=== PATIENT | male | born 1970 | race Caucasian/White ===

== ENCOUNTER 2023-01-16 17:55 | Inpatient (IN) | payer OTHER, SELFPAY ==
--- NOTE | ~2023-01-16 | MR_ITS ---
MRI of the brain Clinical History: Left homonymous hemianopia Technique: Axial and sagittal T1-weighted images were acquired. These were followed by axial T2-weigh jose francisco, diffusion weighted, gradient, and FLAIR images. Following intravenous administration of 20 cc Mu ltiHance gadolinium, T1-weighted fat-sat imaging was performed in the axial and coronal planes. Findings: There is extensive restricted diffusion involving the right occipital lobe, compatible with acute infarct. There are much smaller scattered focal areas of restricted diffusion in the posterior left temporal/occipital lobe and left cerebellum, as well as in the cerebellar vermis. No intracrani al hemorrhage evident. Areas of acute infarct and straight corresponding hyperintense FLAIR signal. T here are background mild chronic microvascular ischemic changes in the periventricular white matter b ilaterally. Ventricles and subarachnoid spaces are unremarkable. Orbits are unremarkable. There is bilateral maxi llary and ethmoid sinus disease. Possible small arachnoid cyst anterior to the pontomedullary junction with apparent mild mass effect (sagittal image 14). Sagittal midline structures otherwise are unremarkable. IMPRESSION: Extensive acute right occipital lobe infarct. Scattered, much smaller, focal areas of acute infarct in the posterior left temporal/left occipital l obe, left cerebellum, and cerebellar vermis. Possible arachnoid cyst anterior to the pontomedullary junction with apparent mild mass effect, as de tailed above. Mild background chronic microvascular ischemic change. Reviewed, dictated and finalized at location M. THROWER IMPRESSION: Extensive acute right occipital lobe infarct. Scattered, much smaller, focal areas of acute infarct in the posterior left tem poral/left occipital lobe, left cerebellum, and cerebellar vermis. Possible arachnoid cyst anterior to the pontomedullary junction with apparent m ild mass effect, as detailed above. Mild background chronic microvascular ischemic change.
--- NOTE | ~2023-01-16 | CT_ITS ---
EXAMINATION: CTA brain carotid DATE: 01/16/2023 20:18 INDICATION: Left-sided homonymous hemianopsia. TECHNIQUE: Computed tomographic angiography (CTA) of the head was performed without and with 100 mL O mnipaque-350 intravenous contrast. CTA of the neck was performed with intravenous contrast. Automated exposure control and iterative reconstruction technique were employed. The dose-length product was 1 887.65 mGy-cm. Maximum intensity projection and volume rendered 3D-reconstructions were created by josh ayala technologist on a separate workstation. COMPARISON: None. FINDINGS: HEAD CTA: There is no intracranial hemorrhage, acute infarction, or abnormal intracranial mass lesion . The ventricles are normal in size. There is mucosal thickening in the paranasal sinuses. The orbits are normal. The mastoid air cells are normal. Left vertebral artery is dominant. There is no signifi cant stenosis of basilar artery or the posterior cerebral arteries. There is no significant stenosis of the intracranial internal carotid arteries or anterior or middle cerebral arteries. Anterior commu nicating artery is normal. The posterior communicating arteries are normal. There is no aneurysm. NECK CTA: There are no pathologically enlarged lymph nodes. There is no significant stenosis of the v ertebral arteries. There is plaque in proximal left internal carotid artery. There is 0% stenosis of the proximal right internal carotid artery relative to normal distal artery lumen diameter (NASCET cr iteria). There is 0% stenosis of the proximal left internal carotid artery relative to normal distal artery lumen diameter. There is mild cervical spondylosis. IMPRESSION: 1. Normal brain. No aneurysm or significant intracranial arterial stenosis. 2. 0% stenosis of the proximal internal carotid arteries relative to normal distal artery lumen diame ters (NASCET criteria). Reviewed, dictated and finalized at location E. ISH REMOVER IMPRESSION: 1. Normal brain. No aneurysm or significant intracranial arterial stenosis. 2. 0% stenosis of the proximal internal carotid arteries relative to normal dis adwoa artery lumen diameters (NASCET criteria).
--- NOTE | ~2023-01-16 | XR_ITS ---
EXAMINATION: XR chest 2V DATE: 01/16/2023 20:07 INDICATION: Cerebrovascular accident. TECHNIQUE: Frontal and lateral views of the chest were obtained. COMPARISON: None. FINDINGS: There is marked elevation of right hemidiaphragm. There is mild atelectasis at right lung b ase. No pleural effusion or pneumothorax. The heart size is normal. IMPRESSION: 1. Marked elevation of right hemidiaphragm with mild atelectasis at right lung base. Reviewed, dictated and finalized at location E. E AID
[2023-01-16 18:00] VITALS: BP 119/118; PULSE 80; RESP 18; TEMP 36.8; O2SAT 96
--- NOTE | 2023-01-16 19:22 | ECG_ITS ---
Measurements Intervals [place] Rate: 80 P: 17 CO: 143 QRS: 6 QRSD: 95 T: 30 QT: 353 QTc: 408 Interpretive Statements SINUS RHYTHM NORMAL ELECTROCARDIOGRAM NO PREVIOUS ECG AVAILABLE FOR COMPARISON Electronically Signed On 01-17-2023 7:23:43 [employer] REPAIRER by Greyson Rachel M.D.
[2023-01-16 19:40] LABS: Basophils Percent Auto 0.6 % (0.2-1.2); Eosinophils Absolute Auto 0.1 K/mm3 (0-0.3); Eosinophils Percent Auto 2.2 % (0-4.4); Hematocrit 43.5 % (42.0-52.0); Immature Granulocyte Absolute 0.01 K/mm3 (0.00-0.031); Immature Granulocyte Percent A 0.2 % (0-0.5); Lymphocytes Absolute Auto 1.43 K/mm3 (0.9-3.2); Lymphocytes Percent Auto 28.8 % (18.3-44.2); Mean Corpuscular HGB Conc 34.5 g/dl (32-36); Mean Corpuscular Hemoglobin 31.8 pg (26-34); Mean Corpuscular Volume 92.2 fl (80-100); Mean Platelet Volume 8.8 fl (7.4-10.4); Monocytes Absolute Auto 0.3 K/mm3 (0.1-0.6); Monocytes Percent Auto 6.2 % (2.6-8.5); Neutrophils Absolute Auto 3.1 K/mm3 (1.3-6.7); Platelet Count Result 218 k/mm3 (150-375); Red Blood Count 4.72 M/mm3 (4.6-6.20)
--- NOTE | 2023-01-16 19:41 | ED.NEUROSD ---
HPI - Neuro Symptoms/Deficit General Chief Complaint: Neuro Symptoms/Deficit Stated Complaint: vision problems Time Seen by Provider: 01/16/23 18:59 History of Present Illness HPI Narrative: Patient is a 53-year-old male who presents the ER with concern for CVA. Around 2:00 p.m. patient got out of the shower and noticed he was having difficulty with vision. The visual disruption is the left side of his vision. He went to an eye doctor who performed a evaluation it appears patient has left homonymous hemianopsia. Patient has had some mild posterior headache that is not severe. No aggravating or alleviating factors. Reports family history of aneurysm in his father. No previous history of CVA. Denies any numbness or weakness the arms or legs. No slurred speech. Related Data Home Medications Medication Instructions Recorded Confirmed No Home Medications 01/16/23 01/16/23 Allergies Allergy/AdvReac Type Severity Reaction Status Date / Time No Known Allergies Allergy Unverified 01/16/23 17:56 NKDA Allergy Mild Unknown Uncoded 01/16/23 17:56 Review of Systems Review of Systems: All systems reviewed & are unremarkable except as noted in HPI and below Constitutional: Constitutional: Reports no additional constitutional complaints Eyes: Eyes: Reports change in vision and Denies photophobia ENT: Reports system reviewed and no additional complaints, except as documented Cardiovascular: Cardiovascular: Reports no additional cardiovascular complaints Respiratory: Respiratory: Reports no additional respiratory complaints Gastrointestinal: Gastrointestinal: Reports no additional gastrointestinal complaints Musculoskeletal: Musculoskeletal: Reports no additional musculoskeletal complaints Integumentary/Breasts: Skin/Breast: Reports system reviewed and no additional complaints, except as docu Neurologic: Denies syncope, Reports headache(s), Denies focal weakness and Denies numbness Comments: Positive vision loss [facility] Past Medical History Medical History (Updated 01/17/23 @ 05:35 by Karlo Llamas MD) Healthy adult male Surgical History Surgical History (Updated 01/16/23 @ 19:43 by Karlo Llamas MD) History of hernia surgery Family History Family History Mother Carcinoma of colon Father Carcinoma of colon Social History Social History Smoking status: Never smoker Alcohol intake: current Substance use: never Substance use type: does not use Lack of Transportation: No Lack of Food: Never True Current Housing: I Have Housing Concerned About Future Housing: No Difficulty Paying Gas/Electric Bills: No Difficulty Paying for Meds: No Currently Unemployed: No Education: Bachelor's Degree Difficulty w/ Childcare or Family Care: No Spiritual care concerns: No Exam Narrative: GENERAL: Well-appearing, well-nourished, and in no acute distress. HEAD: Normocephalic, atraumatic. EYES: PERRL and EOMI. patient with left-sided vision loss with peripheral vision testing in both eyes. ENT: Mucous membranes moist. CHEST: Clear to auscultation. No respiratory distress. HEART: Regular rate and rhythm. Normal peripheral pulses. ABDOMEN: Soft, nontender, nondistended. EXTREMITIES: Normal range of motion. No edema. SKIN: Warm, dry, no rash. NEURO: Alert and oriented x3. Vision loss is noted above. No upper lower extremity drift. Normal oufp-vw-wbxy and snraih-cq-uljg testing. No facial droop her dysarthria. Sensation intact bilaterally. See NIH stroke scale. PSYCH: Normal mood and affect. Course Course Emergency Course: Patient educated on lab and imaging results. Discuss need for admission for stroke workup. Accepted by hospitalist. Patient can not for tPA as he presented outside the window. Vital Signs Vital signs: Vital Signs Temperature 98.2 F 01/16/23 18:00 Pulse Rate 80
[2023-01-16 19:51] LABS: Alanine Aminotransferase 34 U/L (6-50); Albumin Level 4.4 g/dL (3.5-5.1); Alkaline Phosphatase 81 U/L (38-126); Anion Gap 8 mmol/L (8-16); Aspartate Amino Transferase 29 U/L (17-59); Bilirubin,Total 0.6 mg/dL (0.2-1.3); Blood Urea Nitrogen 18 mg/dL (9-20); Calcium 9.3 mg/dL (8.4-10.2); Carbon Dioxide 27 mmol/L (22-30); Chloride 105 mmol/L (98-107); Estimated CRCL calculation 134 ml/min; Estimated Glomerular Filt Rate > 60; Glucose 110 mg/dL (65-110); Potassium 4.5 mmol/L (3.4-5.0); Sodium 140 mmol/L (137-145)
[2023-01-16 19:53] LABS: Prothrombin Time 13.4 Seconds (11.1-14.7)
[2023-01-16 19:54] LABS: Partial Thromboplastin Time 28.1 SECONDS (22.3-36.8)
[2023-01-16 20:03] LABS: Troponin I < 0.012 ng/mL (0.000-0.034)
[2023-01-16 20:53] VITALS: BP 148/97; PULSE 87; RESP 16; O2SAT 99
--- NOTE | 2023-01-16 21:14 | PM.IMHP ---
H&P: HPI History of Present Illness Date/Time: 01/16/23 21:14 Chief Complaint: VISION LOSS Narrative: THIS IS A 53-YEAR-OLD MALE WITH NO SIGNIFICANT PAST MEDICAL HISTORY, HOWEVER PATIENT HAS NOT SEEN A DOCTOR OR FOR A WHILE. PRESENTS TO THE EMERGENCY ROOM AFTER HE HAD SUDDEN ONSET PERIPHERAL VISION LOSS AFTER TAKING COLD SHOWER WENT TO SEE AN FLIGHT INSTRUCTOR WHO CONFIRMED THE PERIPHERAL VISION LOSS IN EMERGENCY ROOM PATIENT HAD A CT ANGIOGRAM WITH SHOWED NO ACUTE OBSTRUCTION. PATIENT HAS BEEN PLACED IN OBSERVATION. HAS BEEN IN HIS USUAL STATE OF HEALTH UP UNTIL THIS MOMENT DENIES ANY HEADACHES, NUMBNESS TINGLING FOCAL SENSORIMOTOR DEFICITS, NO FEVERS, NO RIGORS, NO CHILLS NO NAUSEA NO VOMITING NO DIARRHEA NO ABDOMINAL PAIN NO COUGH NO SPUTUM PRODUCTION. HAS SOME HEADACHE IN THE OCCIPITAL AREA. XAMINATION: XR chest 2V DATE: 01/16/2023 20:07 INDICATION: Cerebrovascular accident. TECHNIQUE: Frontal and lateral views of the chest were obtained. COMPARISON: None. FINDINGS: There is marked elevation of right hemidiaphragm. There is mild atelectasis at right lung base. No pleural effusion or pneumothorax. The heart size is normal. IMPRESSION: 1. Marked elevation of right hemidiaphragm with mild atelectasis at right lung base. EXAMINATION: CTA brain carotid DATE: 01/16/2023 20:18 INDICATION: Left-sided homonymous hemianopsia. TECHNIQUE: Computed tomographic angiography (CTA) of the head was performed without and with 100 mL Omnipaque-350 intravenous contrast. CTA of the neck was performed with intravenous contrast. Automated exposure control and iterative reconstruction technique were employed. The dose-length product was 1887.65 mGy-cm. Maximum intensity projection and volume rendered 3D-reconstructions were created by the technologist on a separate workstation. COMPARISON: None. FINDINGS: HEAD CTA: There is no intracranial hemorrhage, acute infarction, or abnormal intracranial mass lesion. The ventricles are normal in size. There is mucosal thickening in the paranasal sinuses. The orbits are normal. The mastoid air cells are normal. Left vertebral artery is dominant. There is no significant stenosis of basilar artery or the posterior cerebral arteries. There is no significant stenosis of the intracranial internal carotid arteries or anterior or middle cerebral arteries. Anterior communicating artery is normal. The posterior communicating arteries are normal. There is no aneurysm. NECK CTA: There are no pathologically enlarged lymph nodes. There is no significant stenosis of the vertebral arteries. There is plaque in proximal left internal carotid artery. There is 0% stenosis of the proximal right internal carotid artery relative to normal distal artery lumen diameter (NASCET criteria). There is 0% stenosis of the proximal left internal carotid artery relative to normal distal artery lumen diameter. There is mild cervical spondylosis. IMPRESSION: 1. Normal brain. No aneurysm or significant intracranial arterial stenosis. 2. 0% stenosis of the proximal internal carotid arteries relative to normal distal artery lumen diameters (NASCET criteria). Review of Systems Review of Systems: PERIPHERAL VISION BILATERALLY Constitutional: Constitutional: Denies chills, Denies fatigue, Denies fever(s), Denies frequent falls, Denies malaise, Denies night sweats, Denies poor appetite and Denies weakness Eyes: Eyes: Reports change in vision and Reports loss of vision (BILATERALLY PERIPHERAL VISION LOSS) ENT: Denies dysphagia, Denies vertigo, Denies dizziness, Denies facial pain, Reports headache(s) (OCCIPITAL), Denies nasal congestion, Denies nasal discharge and Denies odynophagia Cardiovascular: Cardiovascular: Denies chest pain, Denies radiating jaw, neck or arm pain and Denies palpitations Respiratory: Respiratory: Denies cough, Denies excessive phlegm production and Denies dyspnea Gastrointestinal: Gastrointestinal: Denies abdomina
--- NOTE | 2023-01-16 23:10 | ADMGEN ---
This patient, Kory Cueva, was admitted to Medical Room 248-01. Patient/family oriented to hospital policies and general routines including ID bracelet, bed and alarms, visiting hours, pain management, procedures, bathroom and other care routines, personal items, smoking policy, room service/diet, and visiting hours. Information on how to activate the Rapid Response Team has been discussed. Patient/Family are encouraged to report perceived risks to care and to ask questions if they do not understand what they are told or what they should do.
[2023-01-16 23:15] VITALS: BP 147/108; PULSE 94; RESP 16; TEMP 36.1; O2SAT 95
[2023-01-16 23:30] VITALS: BP 173/100
[2023-01-17] VITALS (11 sets, daily range): BP systolic 122–190; BP diastolic 68–98; PULSE 70–99; RESP 16–18; TEMP 36.4–36.6; O2SAT 95–96
[2023-01-17] MEDS: ACETAMINOPHEN 500 MG TABLET 1000 MG PO ×2 (01:17→20:22)
[2023-01-17] MEDS: hydrALAZINE HCL 20 MG/ML VIAL 10 MG IV PUSH (01:17)
--- NOTE | 2023-01-17 06:00 | ECHO_ITS ---
Patient Info Name: Kory Cueva Age: 53 years : 1970 Gender: Male Ht: 70 in Wt: 260 lbs BSA: 2.46 m2 HR: 78 bpm BP: 145 / 71 mmHg Technical Quality: Fair Exam Date: 01/17/2023 12:04 PM Exam Location: Echo Lab Exam Room: [facility] Patient Status: Inpatient Admit Date: 01/17/2023 Staff Ordering Physician: Karlo Llamas MD Bridge Expert: Samantha Vivas RDCS Attending Provider: Katy Cortez MD Referring Physician: Farhad TOURE; Exam Type: CA echo doppler w bubble study Study Info Indications - cva r/o cse Complete two-dimensional, color flow and Doppler transthoracic echocardiogram is performed with agitated saline. Contrast/Agitated Saline Contrast/Ag. Saline: Agitated Saline Amount: 20.00 ml Existing IV Access: Yes IV Access Condition: patent with no signs of infiltration Summary 1. Left ventricular chamber dimension is normal. 2. Left ventricular systolic function is normal, estimated at 65-70%. 3. There is mild concentric increased left ventricular wall thickness. 4. The left ventricular diastolic function is grade I diastolic dysfunction. 5. E/e' 8 is minimally elevated. 6. There is trace tricuspid valve regurgitation. 7. No pulmonary hypertension, estimated pulmonary arterial systolic pressure is 35 mmHg. Left Ventricle E/e' 8 is minimally elevated. Left ventricular chamber dimension is normal. Left ventricular systolic function is normal, estimated at 65-70%. There is mild concentric increased left ventricular wall thickness. The left ventricular diastolic function is grade I diastolic dysfunction. Right Ventricle Right ventricular chamber dimension is normal. Right ventricular systolic function is normal. Left Atria Left atrial chamber dimension is normal. Right Atria Right atrial chamber dimension is normal. Atrial Septum Agitated saline injection with and without valsalva maneuver opacified right side cardiac chambers without shunt to left side cardiac chambers. Intact interatrial septum visualized by 2D and agitated saline imaging. Aortic Valve The aortic valve is trileaflet. There is no aortic valve stenosis. There is no aortic valve regurgitation. Pulmonic Valve There is no pulmonic regurgitation. Mitral Valve There is no mitral valve stenosis. There is no mitral valve regurgitation. Tricuspid Valve There is trace tricuspid valve regurgitation. No pulmonary hypertension, estimated pulmonary arterial systolic pressure is 35 mmHg. Pericardium/Pleural There is no pericardial effusion. Inferior Vena Cava Normal inferior vena cava with >50% collapse upon inspiration consistent with normal right atrial pressure, 5 mmHg. Aorta The aortic root size at the sinus of Valsalva is normal. Left Ventricular Outflow Tract Name Value Normal LVOT 2D LVOT Diameter 2.1 cm LVOT Doppler LVOT Peak Gradient 5 mmHg LVOT Mean Gradient 3 mmHg LVOT VTI 19 cm LVOT VTI/AV VTI Ratio 0.8 LVOT Stroke Volume 63 ml LVOT CO 15.7 l/min
[2023-01-17 10:40] LABS: Cholesterol 190 mg/dL (0-200); HDL Direct 35 mg/dL; Triglycerides 88 mg/dL (<150)
[2023-01-17 10:50] LABS: LDL Cholesterol Direct 128 mg/dL
--- NOTE | 2023-01-17 11:33 | WPDNEURCNPN ---
Assessment and Plan Assessment and plan (1) Cerebrovascular accident: Code(s): I63.9 - Cerebral infarction, unspecified Status: Acute (2) Left homonymous hemianopsia: Code(s): H53.462 - Homonymous bilateral field defects, left side Status: Acute (3) Obesity (BMI 30-39.9): Code(s): E66.9 - Obesity, unspecified Status: Acute (4) Hypertension: Code(s): I10 - Essential (primary) hypertension Status: Acute (5) Hyperlipidemia: Code(s): E78.5 - Hyperlipidemia, unspecified Status: Acute Plan Mr. Cueva is a 53 year old male with no significant prior medical history presenting with L homonymous hemianopia. He was found to have R occpital infarct, but also areas of infarcts in the L occipital/temporal/cerebellar region. CTA brain/carotid was negative for intracranial/extracranial stenosis. Etiology of stroke is likely embolic stroke of undetermined stroke. - Continue daily aspirin 81mg daily - Start statin, goal LDL is <70 - Surface echocardiogram with bubble study; if negative will need to consult Cardiology for possible KUNAL/loop to evaluate for cardioembolic etiology - If cardiac work-up is unrevealing, recommend Aspirin 81mg and Plavix 75mg for 3 weeks and then Aspiring 81mg monotherapy thereafter Consult date: 01/17/23 Reason for consult: Stroke HPI: Kory Cueva is a 53 year old male with no significant past medical history presenting for evaluation of visual deficit. Patient was showering yesterday afternoon, when he noted loss of peripheral vision in his left eye around 2PM. He initially when to his eye doctor who noted that he had loss of L sided vision in both eyes. He was then instructed to go to ED. On presentation he was noted to have L homonymous hemianopia but no other focal deficits (NIHSS 3). Blood pressure ranged from 140-150s with highest reaching 170s systolic. EKG showed normal sinus rhythm. CT head and CTA brain/carotid were unrevealing. MRI brain done this morning showed acute infarct in the R occpital lob as well as scatter smaller infarcts in the left temporal lobe, left occipital lobe, and left cerebellum. LDL is 128. Patient was not on any home medications and had not seen a provider in several years. Patient continues to have visual deficit. There is no family history of early stroke or early heart disease. No family history of abnormal clotting as far as he knows. He does not smoke. He works for [employer]. Review of Systems Review of Systems: All systems reviewed & are unremarkable except as noted in HPI and below PMFSH Past Medical History Medical History Healthy adult male Surgical History Surgical History History of hernia surgery Family History Family History Mother Carcinoma of colon Father Carcinoma of colon Social History Social History Smoking status: Never smoker Alcohol intake: current Substance use: never Substance use type: does not use Lack of Transportation: No Lack of Food: Never True Current Housing: I Have Housing Concerned About Future Housing: No Difficulty Paying Gas/Electric Bills: No Difficulty Paying for Meds: No Currently Unemployed: No Education: Bachelor's Degree Difficulty w/ Childcare or Family Care: No Spiritual care concerns: No Meds Home Medications and Allergies Home Medications Medication Instructions Recorded Confirmed Type No Home Medications 01/16/23 01/16/23 History Allergies Allergy/AdvReac Type Severity Reaction Status Date / Time No Known Allergies Allergy Unverified 01/16/23 17:56 NKDA Allergy Mild Unknown Uncoded 01/16/23 17:56 Vital Signs Vital Signs - 24 hr 01/16/23 18:00 01/16/23 20:53 01/16/23 23:15 Temperature 36.8 C 36.
[2023-01-17] MEDS: ASPIRIN 81 MG CHEWABLE TABLET PO (11:53)
[2023-01-17] MEDS: lisinopriL 5 MG TABLET PO (11:53)
--- NOTE | 2023-01-17 11:58 | PC.NURSE ---
First doses of aspirin and lisinopril given at 1153 01/17/23. See Discontinued medications in MAR for administration detail.
--- NOTE | 2023-01-17 12:53 | PM.IMPN ---
Progress Note: A&P Assessment and Plan (1) Vision loss, bilateral: Code(s): H54.3 - Unqualified visual loss, both eyes Status: Acute Assessment and Plan: CT brain/neck showed normal brain. No aneurysm or significant intracranial arterial stenosis.0% stenosis of the proximal internal carotid arteries relative to normal distal artery lumen diameters (NASCET criteria) CXR negative MRI brain showed extensive acute right occipital lobe infarct.Scattered, much smaller, focal areas of acute infarct in the posterior left temporal/left occipital lobe, left cerebellum, and cerebellar vermis. 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 started on aspirin, statin and ACEI, will likely start Plavix for 3 weeks neurology consulted, following recommendations will consult cardiology if ECHO is unrevealing for further evaluation with possible KUNAL/loop for cardiac etiology (2) Obesity (BMI 30-39.9): Code(s): E66.9 - Obesity, unspecified Status: Acute Assessment and Plan: will start on Lipitor 40 mg encourage lifestyle and diet modifications (3) Hypertension: Code(s): I10 - Essential (primary) hypertension Status: Acute Assessment and Plan: ECHO ordered started on lisinopril 5 mg (4) Cerebrovascular accident: Code(s): I63.9 - Cerebral infarction, unspecified Status: Acute Assessment and Plan: Brain MRI showed Extensive acute right occipital lobe infarct.Scattered, much smaller, focal areas of acute infarct in the posterior left temporal/left occipital lobe, left cerebellum, and cerebellar vermis. 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 neurology consulted, will follow recommendations ECHO ordered as CT brain/neck did not show stenosis of the carotid arteries (5) Hyperlipidemia: Code(s): E78.5 - Hyperlipidemia, unspecified Status: Acute Assessment and Plan: lipid panel ordered: triglycerides 88; total chol 190; LDL 128; HDL 35 starting on Lipitor 40 mg daily with goal of LDL < 70 Subjective Date/time seen: 01/17/23 12:53 Interval history: Patient is a 53-year-old male admitted from the ER with concern for CVA. Around 2:00 p.m. yesterday, patient got out of the shower and noticed he was having difficulty with vision. The visual disruption is the left side of his vision. He went to an eye doctor who performed a evaluation and did not think it was vision related. Patient had a mild posterior headache that was not severe. No aggravating or alleviating factors. Reports family history of aneurysm in his father. No previous history of CVA. Denies any numbness or weakness the arms or legs. No slurred speech. He does not follow with a PCP regularly and lives alone. This morning he is reporting a dull headache on the right upper lobe, denies history of migraines. His vision on the right eye was slightly improved this am. His CT brain was negative for acute process, CXR negative but MRI did show acute infarct. Neurology consulted, will follow recommendations. I started him on aspirin 81 mg daily, lisinopril and ordered lipid panel. Will add on Plavix after ECHO results, may need to consult cardiology. Will add statin and await further evaluation. Review of Systems Review of Systems: All systems reviewed & are unremarkable except as noted in HPI and below Exam Narrative: GENERAL: Well nourished, no acute distress, overweight. HEAD: Normocephalic, atraumatic. EYES: PERRLA and EOMI. peripheral vision limited bilaterally. NECK: Supple. LUNGS: Clear to auscultation bilaterally. No respiratory distress. HEART: RRR, no murmurs. ABDOMEN: Soft, nontender, nondistended. Non-tender to palpation. EXTREM
[2023-01-17] MEDS: ATORVASTATIN 40 MG TABLET PO (18:13)
[2023-01-17] MEDS: lisinopriL 10 MG TABLET PO (20:22)
[2023-01-18] VITALS (7 sets, daily range): BP systolic 125–160; BP diastolic 65–90; PULSE 56–112; RESP 18; TEMP 36.7; O2SAT 94
[2023-01-18 07:43] LABS: Hematocrit 43.1 % (42.0-52.0); Hemoglobin 14.3 g/dL (14.0-18.0); Mean Corpuscular HGB Conc 33.2 g/dl (32-36); Mean Corpuscular Hemoglobin 31.8 pg (26-34); Mean Platelet Volume 8.4 fl (7.4-10.4); Platelet Count Result 208 k/mm3 (150-375); Red Blood Count 4.49 M/mm3 (4.6-6.20); Red Cell Distribution Width 12.1 % (11.5-14.5); White Blood Count 7.8 K/mm3 (4.5-10.0)
[2023-01-18 08:13] LABS: Anion Gap 6 mmol/L (8-16); Blood Urea Nitrogen 16 mg/dL (9-20); CRP 0.8 mg/dL (<1.0); Calcium 9.1 mg/dL (8.4-10.2); Carbon Dioxide 29 mmol/L (22-30); Chloride 103 mmol/L (98-107); Estimated CRCL calculation 126 ml/min; Estimated Glomerular Filt Rate > 60; Glucose 108 mg/dL (65-110); Potassium 4.3 mmol/L (3.4-5.0); Sodium 138 mmol/L (137-145)
[2023-01-18] MEDS: ASPIRIN 81 MG CHEWABLE TABLET PO (08:41)
[2023-01-18] MEDS: ACETAMINOPHEN 500 MG TABLET 1000 MG PO (08:41)
[2023-01-18] MEDS: lisinopriL 10 MG TABLET PO (08:41)
[2023-01-18] MEDS: ATORVASTATIN 40 MG TABLET PO (08:41)
--- NOTE | 2023-01-18 09:03 | PM.CNCAR ---
Assessment and Plan Assessment and plan (1) Cerebrovascular accident: Code(s): I63.9 - Cerebral infarction, unspecified Status: Acute Assessment and Plan: 53-year-old male with no known prior cardiovascular history, presented to the hospital with L homonymous hemianopia. Brain MRI showed extensive acute right occipital lobe infarct; scattered, much smaller, focal areas of acute infarct in the posterior left temporal/left occipital lobe, left cerebellum, and cerebellar vermis. EKG normal. On telemetry, patient has predominant sinus rhythm with 1 episode of 6 beat NSVT. Echo showed normal LV function, no interatrial shunt on agitated normal saline. Cardiology consulted for KUNAL plus minus implantable director of cardiac rehabilitation. -after discussing benefits, risks alternatives, patient is willing to proceed with transesophageal echocardiogram to check for cardioembolic source. KUNAL can be done on Friday if patient is still hospitalized at that time. Need for implantable director of cardiac rehabilitation to be determined based on KUNAL findings. -continue aspirin, statin. -neurology evaluation -continue to monitor on telemetry while patient is being hospitalized (2) Hypertension: Code(s): I10 - Essential (primary) hypertension Status: Acute Assessment and Plan: Patient found to have elevated blood pressure during hospitalization. Currently reason for. Monitor blood pressure. History of Present Illness History of Present Illness Consult date/time: 01/18/23 09:03 Requesting physician: Katy Cortez MD Reason For Visit: Left Homonymous Hemianopia Narrative: DATE OF CONSULT: 01/18/2023 REASON FOR CONSULT: CVA, KUNAL, loop REQUESTING PHYSICIAN:MD Dana CHIEF COMPLAINT: Vision impairment HPI: 53-year-old male with no known prior cardiac history. Patient presented to [facility] Emergency Room on 01/16/2023 with vision impairment. Patient states he had difficulty in peripheral vision of both eyes, went to see ? [employer] and was advised to to the hospital. He denied any symptoms of body weakness. No chest pain, shortness of breath, palpitation, dizziness syncope. No known prior cardiac history. Patient states that he usually does not see a physician on a regular basis. EKG on my personal interpretation showed normal sinus rhythm without any significant ST-T abnormality. Troponin x1 negative. Echo showed normal LV systolic function; no interatrial shunt on bubble study. TSH within normal limits. chest x-ray showed Marked elevation of right hemidiaphragm with mild atelectasis at right lung base. CTA head/neck- Normal brain. No aneurysm or significant intracranial arterial stenosis; 0% stenosis of the proximal internal carotid arteries relative to normal distal artery lumen diameters (NASCET criteria). Brain MRI showed extensive acute right occipital lobe infarct; scattered, much smaller, focal areas of acute infarct in the posterior left temporal/left occipital lobe, left cerebellum, and cerebellar vermis. On telemetry, patient has predominantly in sinus rhythm;one 6 beat run of NSVT. Cardiology in the consulted for KUNAL to check for cardioembolic source and possible implantable director of cardiac rehabilitation. Review of Systems Review of Systems: General: Negative for fever, chills, fatigue Psychological: Negative for anxiety, depression Ophthalmic: Visual impairment with loss of peripheral vision as per patient ENT: Negative for epistaxis, headaches Allergy and immunology: Negative for hives, nasal congestion Hematologic and lymphatic: Negative for overt bleeding problems Endocrine: Negative for hot flashes, palpitations Respiratory: Negative for cough, hemoptysis Cardiovascular: Negative for chest pain, shortness of breath, leg swelling, palpitations, dizziness, syncope Gastrointestinal: Negative for abdominal pain, nausea, vomiting, hematochezia Musculoskeletal: Negative for myalgia, joint pains Neurolog
[2023-01-18 09:52] LABS: Free T4 Free Thyroxine Reflex 0.93 ng/dL (0.78-2.19)
[2023-01-18 10:47] LABS: Total Triiodothyronine (T3) 1.01 NG/ML (0.97-1.69)
--- NOTE | 2023-01-18 12:20 | WPDNEUROPN ---
Progress Note: A&P Assessment and Plan (1) Cerebrovascular accident: Code(s): I63.9 - Cerebral infarction, unspecified Status: Acute (2) Left homonymous hemianopsia: Code(s): H53.462 - Homonymous bilateral field defects, left side Status: Acute (3) Hypertension: Code(s): I10 - Essential (primary) hypertension Status: Acute (4) Obesity (BMI 30-39.9): Code(s): E66.9 - Obesity, unspecified Status: Acute (5) Hyperlipidemia: Code(s): E78.5 - Hyperlipidemia, unspecified Status: Acute Plan Mr. Cueva is a 53 year old male with no significant prior medical history presenting with L homonymous hemianopia. He was found to have R occipital infarct, but also areas of infarcts in the L occipital/temporal/cerebellar region. CTA brain/carotid was negative for intracranial/extracranial stenosis. Etiology of stroke is likely embolic stroke of undetermined source. - Continue daily aspirin 81mg daily - He has been started on Lipitor 40mg, goal LDL is <70 - Cardiology has been consulted for further cardiac testing - If patient is discharged today, please dc with Aspirin 81mg and Plavix 75mg for 3 weeks and then Aspirin 81mg monotherapy thereafter - He will need outpatient Neurology follow up in about 2-3 months Subjective Date/time seen: 01/18/23 12:20 Interval history: Kory Cueva is a 53 year old male with no significant past medical history presenting for evaluation of visual deficit. Patient was showering yesterday afternoon, when he noted loss of peripheral vision in his left eye around 2PM. He initially when to his eye doctor who noted that he had loss of L sided vision in both eyes. He was then instructed to go to ED. On presentation he was noted to have L homonymous hemianopia but no other focal deficits (NIHSS 3). Blood pressure ranged from 140-150s with highest reaching 170s systolic. EKG showed normal sinus rhythm. CT head and CTA brain/carotid were unrevealing. MRI brain done this morning showed acute infarct in the R occipital lob as well as scatter smaller infarcts in the left temporal lobe, left occipital lobe, and left cerebellum. LDL is 128. Patient was not on any home medications and had not seen a provider in several years. Patient continues to have visual deficit. There is no family history of early stroke or early heart disease. No family history of abnormal clotting as far as he knows. He does not smoke. He works for [employer]. Surface echo with bubble unrevealing; no shunt with normal EF. Visual symptoms are same per patient. He otherwise has no complaints. Review of Systems Review of Systems: All systems reviewed & are unremarkable except as noted in HPI and below Exam Const: General: comfortable and no acute distress HENMT: Mouth: Yes moist mucous membranes Eyes: Pupils: Equal, round and reactive pupils present EOM: EOMs intact bilaterally Other: L homonymous hemianopia Resp: Effort & Inspection: normal respiratory effort Skin: General skin exam: normal color Neuro: Other: Alert, awake, pupils equal and reactive bilaterally, EOMI, L homonymous hemianopia, face symmetric, facial sensation intact, tongue protrudes midline, palate midline. Shoulder shrug normal. Strength 5/5 throughout. Sensation intact throughout. FNF normal bilaterally. Language comprehension and fluency intact. Gait deferred. Extrem: General: normal to inspection Psych: Mental Status: mental status grossly normal Affect: normal affect Objective Data Vital Signs Vital Signs: Vital Signs - 24 hr 01/17/23 14:00 01/17/23 16:00 01/17/23 18:20 Temperature 36.4 C Pulse Rate 89 80 Respiratory Rate 16 Blood Pressure 174/84 H 190/98 H Pulse Oximetry 95 Oxygen Delivery 01/17/23 20:53 01/17/23 20:00 01/17/23 20:00 Temperature 36.5 C Pulse Rate 91 91 99 Respiratory Rate 17 17 Blood Pressure 122/68 Pulse Oximetry 96 96 Oxygen Delivery Alecia
--- NOTE | 2023-01-18 12:23 | PM.DS ---
DS: Admitting Diagnosis Discharge Date 01/18/23 Admitting Diagnosis peripheral vision loss DS: Discharge Diagnosis Discharge Diagnosis (1) Vision loss, bilateral: Code(s): H54.3 - Unqualified visual loss, both eyes Status: Acute Assessment and Plan: CT brain/neck showed normal brain. No aneurysm or significant intracranial arterial stenosis.0% stenosis of the proximal internal carotid arteries relative to normal distal artery lumen diameters (NASCET criteria) CXR negative MRI brain showed extensive acute right occipital lobe infarct.Scattered, much smaller, focal areas of acute infarct in the posterior left temporal/left occipital lobe, left cerebellum, and cerebellar vermis. 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 started on aspirin, statin and ACEI, will start Plavix for 3 weeks neurology consulted, following recommendations ECHO is unrevealing Cardiology consulted, to perform KUNAL outpatient (2) Obesity (BMI 30-39.9): Code(s): E66.9 - Obesity, unspecified Status: Acute Assessment and Plan: Lipitor 40 mg encourage lifestyle and diet modifications (3) Hypertension: Code(s): I10 - Essential (primary) hypertension Status: Acute Assessment and Plan: ECHO normal lisinopril 10 mg monitor BP at home (4) Cerebrovascular accident: Code(s): I63.9 - Cerebral infarction, unspecified Status: Acute Assessment and Plan: Brain MRI showed Extensive acute right occipital lobe infarct.Scattered, much smaller, focal areas of acute infarct in the posterior left temporal/left occipital lobe, left cerebellum, and cerebellar vermis. 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 neurology consulted, will follow recommendations ECHO normal CT brain/neck did not show stenosis of the carotid arteries cardiology to follow outpatient for further evaluation (5) Hyperlipidemia: Code(s): E78.5 - Hyperlipidemia, unspecified Status: Acute Assessment and Plan: lipid panel ordered: triglycerides 88; total chol 190; LDL 128; HDL 35 Lipitor 40 mg daily with goal of LDL < 70 DS: Summary Hospital Course Hospital Course: Patient is a 53-year-old male admitted from the ER with concern for CVA. Around 2:00 p.m. yesterday, patient got out of the shower and noticed he was having difficulty with vision. The visual disruption is the left side of his vision. He went to an eye doctor who performed a evaluation and did not think it was vision related. Patient had a mild posterior headache that was not severe. No aggravating or alleviating factors. Reports family history of aneurysm in his father. No previous history of CVA. Denies any numbness or weakness the arms or legs. No slurred speech. He does not follow with a PCP regularly and lives alone. This morning he is reporting a minor headache His vision on the right eye was slightly improved this yesterday, unchanged today. His CT brain was negative for acute process, CXR negative but MRI did show acute infarct. Neurology consulted and cleared as there is no ischemic cause for the stroke evident on imaging thus far. Started patient on aspirin 81 mg daily, lisinopril and statin with goal of LDL <70. Will add on Plavix for 3 weeks. Cardiology consult today and he will need a KUNAL, but can be done outpatient since this cannot be done here until Friday. He is stable for d/c today home and will follow up to schedule outpatient KUNAL. Status at Discharge Functional status at discharge: independent ambulation Overall status at discharge: patient is progressing back to baseline Time Spent with Patient Time attestation: Total time spent providing and/or coordinating discharge serv
== END 2023-01-18 14:00 | disposition home or self-care (01) | DRG 66 ==
LOC: ANHED 18:59 → ANH3MEDSUR 22:14 → ANH2MED 22:14
PROVIDERS: Admitting Provider Internal Medicine; Emergency Provider Emergency Medicine; PCP Family Medicine; Visit Provider Nurse Practitioner
DX: I63.40 Cerebral infarction due to embolism of unspecified cerebral artery (principal); H53.462 Homonymous bilateral field defects, left side; R29.703 NIHSS score 3; E78.5 Hyperlipidemia, unspecified; I10 Essential (primary) hypertension; Z28.21 Immunization not carried out because of patient refusal
CPT/HCPCS: 36415; 70496; 70498; 70553; 71046; 80048; 80053; 80061; 84439; 84443; 84480; 84484; 85025; 85027; 85610; 85730; 86140; 93005; 93306; 96374; 96375; 99285; A9270; A9577; G0378; J0360; Q9967

== ENCOUNTER 2023-01-27 01:50 | Day surgery (SDC) | payer OTHER, SELFPAY ==
[2023-01-24 11:39] VITALS: BMI 40.2
[2023-01-27] VITALS (8 sets, daily range): BP systolic 114–180; BP diastolic 58–87; PULSE 70–90; RESP 12–18; TEMP 36.3; O2SAT 94–97
--- NOTE | 2023-01-27 | ECHO_ITS ---
Patient Info Name: Kory Cueva Age: 53 years : 1970 Gender: Male Ht: 70 in Wt: 280 lbs BSA: 2.56 m2 BP: 126 / 87 mmHg Technical Quality: Good Exam Date: 01/27/2023 7:43 AM Exam Location: Echo Lab Patient Status: Outpatient Admit Date: 01/27/2023 Staff Ordering Physician: Reg Zapata DO [place] Guide: Penny Guillermo RDCS Attending Provider: Reg Zapata DO Referring Physician: Benny QUACH; Exam Type: CA echo transesophageal Study Info Indications - CVA Complete two-dimensional, color flow and Doppler transesophageal study is performed. Procedure Details Risks/benefits of KUNAL discuss with patient and he is agreeable for procedure. Patient was monitored electrocardiographically, vitals and pulse ox and they remained stable throughout the procedure. Cetacaine spray to posterior oropharynx given x 1. Patient was given Fentanyl 25 mcg and Versed 2 mg IV for conscious sedation. KUNAL probe advanced to posterior oropharynx and he swallowed probe without incident. Multiple images obtained at various levels of esophagus. Agitated saline injection x 1. KUNAL probe withdrawn and no blood noted on probe tip. Patient tolerated procedure well and no complications noted. Summary 1. Transesophageal echocardiogram. 2. Left ventricular chamber dimension is normal. 3. Left ventricular systolic function is normal with an ejection fraction of 65-70% by visual estimation. 4. There is trace mitral valve regurgitation. 5. There is trace tricuspid valve regurgitation. Left Ventricle Left ventricular systolic function is normal with an ejection fraction of 65-70% by visual estimation. The left ventricular diastolic function is indeterminate as it was not assessed. Left ventricular chamber dimension is normal. Right Ventricle Right ventricular chamber dimension is normal. Right ventricular systolic function is normal. Left Atria Left atrial chamber dimension is normal. Right Atria Right atrial chamber dimension is normal. Atrial Septum Agitated saline injection with and without valsalva maneuver opacified right side cardiac chambers without shunt to left side cardiac chambers. Atrial septal aneurysm noted. Intact interatrial septum visualized by 2D, color flow and agitated saline imaging. Atrial Appendage There is no thrombus visualized in the left atrial appendage. Aortic Valve The aortic valve is trileaflet. There is no aortic valve stenosis. There is no aortic valve regurgitation. Pulmonic Valve There is no pulmonic regurgitation. Mitral Valve There is no mitral valve stenosis. There is trace mitral valve regurgitation. Tricuspid Valve There is trace tricuspid valve regurgitation. Pericardium/Pleural There is no pericardial effusion. Inferior Vena Cava Inferior vena cava is not well visualized. Aorta The aortic root size at the sinus of Valsalva is normal. Report Signatures Amended by Reg Zapata DO on 01/27/2023 17:14
== END 2023-01-27 09:41 | disposition home or self-care (01) ==
PROVIDERS: PCP Family Medicine; Visit Provider Internal Medicine Cardiovascular Disease
PROC: (CPT 93312; principal; 2023-01-27 08:30)
DX: I63.9 Cerebral infarction, unspecified (principal); H53.462 Homonymous bilateral field defects, left side; I10 Essential (primary) hypertension; E78.5 Hyperlipidemia, unspecified; Z79.02 Long term (current) use of antithrombotics/antiplatelets; Z79.82 Long term (current) use of aspirin; Z79.899 Other long term (current) drug therapy
CPT/HCPCS: 93312; 93320; 93325; J2250; J3010; J7040

== ENCOUNTER 2023-04-02 08:45 | Outpatient (CLI) | payer OTHER, SELFPAY ==
--- NOTE | 2023-04-14 06:53 | WPDSLEEPSTUD ---
Sleep Study Date of Study: 04/02/23 Ordering Provider: Reg Zapata DO Interpreting Physician: Lyudmila Granados MD Sleep Study Type: Split Polysomnogram Height: 1.78 m Weight: 132.449 kg Body Mass Index: 41.8 Neck Circumference (inches): 17.5 Winter: 3 Reason for Sleep Study r Sleep History Kory Cueva is a 53-year-old man with a recent stroke. He was worked up for embolic etiology, with negative results on echo with bubble study, KUNAL, CT, and MRI. He is having sleep evaluation as part of stroke investigation. He has a family history of sleep disorders, his mother had apnea and used PAP. He never awakens from sleep feeling short of breath. He rarely wakes at night with heartburn, belching or coughing.??He occasionally snores. He rarely has trouble sleeping when he has a cold. He rarely wakes up gasping for breath during the night. He never has breathing problems at night. He never sweats excessively at night. He never notices his heart pounding or beating irregularly during the night. He occasionally falls asleep during the day, rarely falls asleep while driving. He never experiences loss of muscle tone with strong emotion. He never has daytime difficulty at work due to excessive sleepiness. He never feels paralyzed on waking or falling asleep. He never experiences vivid dreams upon waking or falling asleep. He never feels afraid of going to sleep. He never has nightmares. He rarely recalls his dreams. He rarely has thoughts racing through his mind. He never feels sad or depressed. He rarely feels anxiety. He never notices parts of his body jerk. He never kicks during the night. He rarely feels crawling or aching feelings in his legs. He rarely feels leg pain at night. He never has morning jaw pain, never grinds his teeth at night. He rarely feels bothered by pain during the day, never awakened by pain during the night. He rarely wakes up feeling stiff in the morning, and he never wakes feeling sore or achy. He never awakens with pain in his neck, spine, or joints. Normal bedtime is 2:00 a.m, falling asleep within 15 minutes, waking once on occasion at night to get a drink of water or go to the bathroom. Wake time is between 7:00 am and 8:00 am. He typically gets 6-7 hours of sleep at night. He takes naps sometimes in the day, and may feel refreshed after a 10-15 minute nap. Habits:??Tobacco:never smoker Caffeine:none. Alcohol:none Recreational substances: none PMFSH Past Medical History Medical History Cerebrovascular accident (~01/2023) Colon cancer screening Family history of colon cancer Hyperlipidemia Hypertension Left homonymous hemianopsia (~01/2023) Surgical History Surgical History History of bilateral inguinal hernia repair (~09/2008) Family History Family History Mother Carcinoma of colon Father Carcinoma of colon Social History Social History Smoking status: Never smoker Alcohol intake: never Substance use: never Substance use type: does not use Do You Feel Safe in your Home?: Yes Lack of Transportation: No Lack of Food: Never True Current Housing: I Have Housing Concerned About Future Housing: No Difficulty Paying Gas/Electric Bills: No Difficulty Paying for Meds: No Currently Unemployed: No Education: Bachelor's Degree Difficulty w/ Childcare or Family Care: No Living arrangements: with family Spiritual care concerns: No Medications Home Medications Medication Instructions Recorded Confirmed Type aspirin 81 mg chewable tablet 81 mg PO DAILY@0800 #30 tabs 02/19/23 03/25/23 Rx (Children's Aspirin) amlodipine 10 mg tablet 10 mg PO DAILY #90 tabs 02/26/23 03/25/23 Rx atorvastatin 40 mg tablet 40 mg PO QHS #90 tabs 02/26/23 03/25/23
[2023-04-17 16:24] VITALS: BMI 41.8
== END 2023-04-03 07:13 | disposition home or self-care (01) ==
LOC: ANHCSM 08:46
PROVIDERS: PCP Family Medicine; Visit Provider Internal Medicine Cardiovascular Disease
DX: G47.10 Hypersomnia, unspecified (principal); G47.33 Obstructive sleep apnea (adult) (pediatric)
CPT/HCPCS: 95811

== ENCOUNTER 2023-04-14 01:27 | Day surgery (SDC) | payer OTHER, SELFPAY ==
[2023-03-25 14:25] VITALS: BMI 40.1
--- NOTE | 2023-04-11 12:39 | SUR.PREOP ---
Patient called regarding upcoming procedure. Reviewed preop instructions, appointment times, and procedure prep.
[2023-04-14 06:30] VITALS: BP 136/96; PULSE 75; RESP 18; TEMP 36.3; O2SAT 94
[2023-04-14] MEDS: LACTATED RINGERS 1,000 ML 150 ML IV CONT (06:41)
--- NOTE | 2023-04-14 07:26 | WPDANESEPPF ---
Anes - Initial Pre Proc Eval Procedure: Operation Date: 04/14/23 07:30 Proposed Procedures p Colonoscopy - Arron Renae MD Date/Time: 04/14/23 07:26 Surgeon: Arron Renae MD Pre Op Diagnosis: Family history of malignant neoplasm of digestive Patient Data Age: 53 Gender: M Height: 1.78 m Weight: 128.6 kg Last Vital Signs Temp 97.4 F L 04/14/23 06:30 Pulse 75 04/14/23 06:30 Resp 18 04/14/23 06:30 BP 136/96 H 04/14/23 06:30 Pulse Ox 94 04/14/23 06:30 O2 Del Method Room Air 04/14/23 06:30 Allergies Allergy/AdvReac Type Severity Reaction Status Date / Time No Known Allergies Allergy Verified 04/14/23 06:26 Home Medications Medication Instructions Recorded Confirmed Type aspirin 81 mg chewable tablet 81 mg PO DAILY@0800 #30 tabs 02/19/23 03/25/23 Rx (Children's Aspirin) amlodipine 10 mg tablet 10 mg PO DAILY #90 tabs 02/26/23 03/25/23 Rx atorvastatin 40 mg tablet 40 mg PO QHS #90 tabs 02/26/23 03/25/23 Rx lisinopril 20 mg tablet 20 mg PO DAILY #90 tabs 02/26/23 03/25/23 Rx Patient hx anesthesia problems: none Family hx anesthesia problems: none Results Review: All pre-operative results and documents have been reviewed as part of the pre-operative evaluation. FOR[facility]LY [facility], [facility] Past Medical History Medical History Cerebrovascular accident (~01/2023) Family history of colon cancer Hyperlipidemia Hypertension Left homonymous hemianopsia (~01/2023) Surgical History Surgical History History of bilateral inguinal hernia repair (~09/2008) Family History Family History Mother Carcinoma of colon Father Carcinoma of colon Social History Social History Smoking status: Never smoker Alcohol intake: never Substance use: never Substance use type: does not use Do You Feel Safe in your Home?: Yes Lack of Transportation: No Lack of Food: Never True Current Housing: I Have Housing Concerned About Future Housing: No Difficulty Paying Gas/Electric Bills: No Difficulty Paying for Meds: No Currently Unemployed: No Education: Bachelor's Degree Difficulty w/ Childcare or Family Care: No Living arrangements: with family Spiritual care concerns: No Anes - Eval Final PreProcedure Day of Procedure 04/14/23 07:26 Patient weight: morbidly obese Heart: regular rate and rhythm Lungs: clear to auscultation Airway: Mallampati scale class II Neurological: alert and oriented Last oral intake: >/= 8 hours ASA classification: III Emergent: no Anesthetic plan: proceed Anesthesia type and monitoring: general GIVS and standard monitoring Results Review: All pre-operative results and documents have been reviewed as part of the pre-operative evaluation. Informed Consent: The patient's anesthetic plan and its attendant risks and benefits were discussed with the patient/family/POA. Questions were solicited and answers provided to the satisfaction of the patient/family/POA.
--- NOTE | 2023-04-14 07:29 | PM.HPGS ---
History of Present Illness History of Present Illness Consent: Risks, benefits, and alternatives have been discussed and questions answered. Patient agrees to proceed with procedure. Chief complaint: Family history of malignant neoplasm of digestive Narrative: Kory Cueva is a 53 year old male here for screening colonoscopy, last one about 12 years ago Review of Systems Constitutional: Constitutional: Denies headache(s) and Denies weakness Eyes: Eyes: Denies blurry vision ENT: Reports Normal hearing present, Denies headache(s) and Denies neck pain Cardiovascular: Cardiovascular: Denies chest pain and Denies dyspnea Respiratory: Respiratory: Denies dyspnea Gastrointestinal: Gastrointestinal: Reports no additional gastrointestinal complaints Genitourinary: Genitourinary: Denies dysuria Musculoskeletal: Musculoskeletal: Denies neck pain Integumentary/Breasts: Skin/Breast: Denies dry skin Neurologic: Reports Normal hearing present, Denies headache(s) and Denies weakness Psychiatric: Psychiatric: Denies anxiety Endocrine: Endocrine: Denies change in body appearance Hematologic/Lymphatic: Hematologic/Lymphatic: Denies easy bleeding Allergic/Immunologic: Allergic/Immunologic: Denies urticaria PMFSH Past Medical History Medical History (Updated 04/14/23 @ 07:30 by Arron Renae MD) Cerebrovascular accident (~01/2023) Colon cancer screening Family history of colon cancer Hyperlipidemia Hypertension Left homonymous hemianopsia (~01/2023) Surgical History Surgical History History of bilateral inguinal hernia repair (~09/2008) Family History Family History Mother Carcinoma of colon Father Carcinoma of colon Social History Social History Smoking status: Never smoker Alcohol intake: never Substance use: never Substance use type: does not use Do You Feel Safe in your Home?: Yes Lack of Transportation: No Lack of Food: Never True Current Housing: I Have Housing Concerned About Future Housing: No Difficulty Paying Gas/Electric Bills: No Difficulty Paying for Meds: No Currently Unemployed: No Education: Bachelor's Degree Difficulty w/ Childcare or Family Care: No Living arrangements: with family Spiritual care concerns: No Meds Home Medications and Allergies Home Medications Medication Instructions Recorded Confirmed Type aspirin 81 mg chewable tablet 81 mg PO DAILY@0800 #30 tabs 02/19/23 03/25/23 Rx (Children's Aspirin) amlodipine 10 mg tablet 10 mg PO DAILY #90 tabs 02/26/23 03/25/23 Rx atorvastatin 40 mg tablet 40 mg PO QHS #90 tabs 02/26/23 03/25/23 Rx lisinopril 20 mg tablet 20 mg PO DAILY #90 tabs 02/26/23 03/25/23 Rx Allergies Allergy/AdvReac Type Severity Reaction Status Date / Time No Known Allergies Allergy Verified 04/14/23 06:26 Vital Signs Vital Signs - 24 hr 04/14/23 06:30 Temperature 97.4 F L Pulse Rate 75 Respiratory Rate 18 Blood Pressure 136/96 H Pulse Oximetry 94 Oxygen Delivery Room Air Exam Const: General: comfortable and no acute distress HENMT: Face/Nose/Sinus: Normal nares present Eyes: General: appearance normal, both eyes and all related structures Neck: Neck: no JVD Resp: Auscultation: clear to auscultation bilaterally Cardio: Rate: regular rate Rhythm: regular rhythm GI: Inspection: non-distended GI Palp: Yes Soft to palpation Skin: General skin exam: normal color Neuro: General: gait normal Speech: normal speech Extrem: General: normal to inspection Psych: Mental Status: mental status grossly normal Assessment and Plan Assessment and plan (1) Colon cancer screening: Code(s): Z12.11 - Encounter for screening for malignant neoplasm of colon Status: Acute Assessment and Plan: c
[2023-04-14 07:50] VITALS: BP 114/74; PULSE 67; RESP 19; O2SAT 94
[2023-04-14 08:00] VITALS: BP 122/59; PULSE 62; RESP 19; O2SAT 94
[2023-04-14 08:10] VITALS: BP 125/79; PULSE 64; RESP 23; O2SAT 100
== END 2023-04-14 08:25 | disposition home or self-care (01) ==
PROVIDERS: PCP Family Medicine; Visit Provider Internal Medicine Gastroenterology
PROC: 0DJD8ZZ Inspection of Lower Intestinal Tract, Via Natural or Artificial Opening Endoscopic (ICD-10-PCS; CPT 45378; principal; 2023-04-14 07:30)
DX: Z12.11 Encounter for screening for malignant neoplasm of colon (principal); K57.30 Diverticulosis of large intestine without perforation or abscess without bleeding; I10 Essential (primary) hypertension; E78.5 Hyperlipidemia, unspecified; E66.01 Morbid (severe) obesity due to excess calories; Z68.41 Body mass index [BMI] 40.0-44.9, adult; Z79.82 Long term (current) use of aspirin; Z98.890 Other specified postprocedural states; Z86.79 Personal history of other diseases of the circulatory system; Z80.0 Family history of malignant neoplasm of digestive organs
CPT/HCPCS: G0105; J2704; J7120

== ENCOUNTER 2023-12-06 19:47 | Observation (INO) | payer OTHER, SELFPAY ==
--- NOTE | ~2023-12-06 | XR_ITS ---
EXAMINATION: XR retrograde pyelo w/stent LT DATE: 12/07/2023 11:40 INDICATION: Left ureteral stone. TECHNIQUE: 74 intraoperative fluoroscopic views of the abdomen and pelvis were obtained. I was not pr esent. Fluoroscopy exposure time was 22 seconds. COMPARISON: CT abdomen and pelvis 12/06/2023 FINDINGS: There is an 8 mm stone in proximal left ureter. The left-sided retrograde pyelogram demonst rates mild hydronephrosis. The final images demonstrate a left internal ureteral stent in expected po sition. IMPRESSION: 1. 8 mm stone in proximal left ureter with mild left hydronephrosis. 2. Left internal ureteral stent in expected position. Reviewed, dictated and finalized at location A.
--- NOTE | ~2023-12-06 | CT_ITS ---
EXAMINATION: CT abdomen pelvis wo con DATE: 12/06/2023 21:42 INDICATION: Left lower quadrant pain. History of kidney stones TECHNIQUE: Computed tomography (CT) of the abdomen and pelvis was performed without intravenous contr ast. Automated exposure control and iterative reconstruction technique were employed. Exam dose: 167 1.06 mGy-cm total exam DLP. COMPARISON: 08/15/2008 CT renal scan FINDINGS: Elevated right diaphragm with associated mild atelectasis at the right lung base. The inclu ded lower lung zones are otherwise unremarkable. Normal heart size. Loop recorder device, left anterior chest wall. No pericardial or pleural effusion . There are several probable hepatic cysts, measuring up to approximately a 19 mm maximal dimension. No rmal caliber of the abdominal aorta. No intraperitoneal or retroperitoneal or pelvic mass lesion or a denopathy or ascites. Approximately 6 mm nonobstructing lower pole right renal calculus. There are 3 nonobstructing left renal calculi, the largest approximately 3.9 mm. 4.7 x 8.6 mm left ureteropelvic junction calculus, with associated moderately severe left hydroureter onephrosis, prominent left perinephric stranding, left nephromegaly. Mild prostate enlargement and calcification. The urinary bladder is unremarkable. Diverticulosis of left and right colon; no CT evidence of diverticulitis. Normal appendix. No bowel obstruction or intraperitoneal free air. 5.6 cm AP and 7.7 cm transverse left periumbilical ventral abdominal wall hernia. Bilateral L5 pars interarticularis defects with grade 2 anterolisthesis at L5-S1. Moderately severe degenerative disc disease at L2-3 with mild associated retrolisthesis. Severe degenerative disc disease at L5-S1. IMPRESSION: 0.7 x 8.6 mm left obstructing ureteropelvic duct calculus with prominent nephromegaly an d perinephric stranding and moderately severe left hydronephrosis Bilateral mild nonobstructive nephrolithiasis Several hepatic cysts Normal appendix Diverticulosis of left and right colon; no evidence of diverticulitis Bilateral L5 pars interarticularis defects with grade 2 anterolisthesis at L5-S1 Degenerative disc disease particularly at L2-3 and L5-S1 Reviewed, dictated and finalized at Location [facility]. Reviewed, dictated and finalized at location A. IMPRESSION: 0.7 x 8.6 mm left obstructing ureteropelvic duct calculus with pro minent nephromegaly and perinephric stranding and moderately severe left hydron ephrosis Bilateral mild nonobstructive nephrolithiasis Several hepatic cysts Normal appendix Diverticulosis of left and right colon; no evidence of diverticulitis Bilateral L5 pars interarticularis defects with grade 2 anterolisthesis at L5-S 1 Degenerative disc disease particularly at L2-3 and L5-S1
--- NOTE | ~2023-12-06 | XR_ITS ---
EXAMINATION: XR chest 1V portable DATE: 12/07/2023 05:56 INDICATION: Hypoxia. TECHNIQUE: A single frontal view of the chest was obtained. COMPARISON: Chest 2 views 01/16/2023, CT abdomen and pelvis 12/06/2023 FINDINGS: There is chronic marked elevation of right hemidiaphragm. There is mild atelectasis at righ t lung base. No pleural effusion or pneumothorax. The heart size is normal. There is an electronic im plant in left anterior chest wall. IMPRESSION: 1. Chronic marked elevation of right hemidiaphragm with mild atelectasis at right lung base. Reviewed, dictated and finalized at location A. IMPRESSION: 1. Chronic marked elevation of right hemidiaphragm with mild atelectasis at rig ht lung base.
[2023-12-06 19:50] VITALS: BP 187/92; PULSE 97; RESP 17; TEMP 36.2; O2SAT 95
--- NOTE | 2023-12-06 20:22 | PC.NURSE ---
patient presents to ED for abdominal pain. this patient complains of pain on the left lower side. patient states he had a BM on 12/04 that was formed and moderate. this patient is ambulatory as seen by walking to bathroom. patient is alert and oriented x's 4. Patient is well kempt, wearing isaac shorts and garcia jacket. patient placed in gown. placed on school lunch monitor.
[2023-12-06 20:25] LABS: Basophils Percent Auto 0.5 % (0.2-1.2); Eosinophils Absolute Auto 0.1 K/mm3 (0-0.3); Eosinophils Percent Auto 1.3 % (0-4.4); Hematocrit 40.7 % (42.0-52.0); Hemoglobin 14.2 g/dL (14.0-18.0); Immature Granulocyte Absolute 0.02 K/mm3 (0.00-0.031); Immature Granulocyte Percent A 0.2 % (0-0.5); Lymphocytes Absolute Auto 1.59 K/mm3 (0.9-3.2); Mean Corpuscular HGB Conc 34.9 g/dl (32-36); Mean Corpuscular Hemoglobin 32.2 pg (26-34); Mean Corpuscular Volume 92.3 fl (80-100); Mean Platelet Volume 8.6 fl (7.4-10.4); Monocytes Absolute Auto 0.6 K/mm3 (0.1-0.6); Monocytes Percent Auto 7.3 % (2.6-8.5); Neutrophils Percent Auto 71.7 % (45.5-73.1); Platelet Count Result 184 k/mm3 (150-375); Red Blood Count 4.41 M/mm3 (4.6-6.20); White Blood Count 8.4 K/mm3 (4.5-10.0)
[2023-12-06 20:33] LABS: Add Urine Microscopic? YES; Appearance Urine Clear (Clear); Bacteria Urine None Seen /hpf; Bilirubin Urine Negative (Negative); Blood Urine 2+ (Negative); Color Urine Yellow (Yellow); Glucose Urine UA Negative (Negative); Ketones Urine Negative (Negative); Leukocyte Esterase Ur Negative LEU/UL (Negative); Nitrate Urine Negative (Negative); Non Pathogenic Casts 0-2; Protein Urine Negative (Negative); RBC Urine 21-50 /hpf (0-2); Specific Grav Ur 1.017 (1.001-1.035); Squamous Epithelial Cell Urine None Seen /hpf (Few); WBC Urine 0-5 /hpf (0-3)
[2023-12-06 20:35] LABS: Alanine Aminotransferase 30 U/L (6-50); Albumin Level 4.6 g/dL (3.5-5.1); Alkaline Phosphatase 92 U/L (38-126); Anion Gap 12 mmol/L (4-12); Aspartate Amino Transferase 31 U/L (17-59); Bilirubin,Total 0.7 mg/dL (0.2-1.3); Blood Urea Nitrogen 20 mg/dL (9-20); Calcium 9.3 mg/dL (8.4-10.2); Carbon Dioxide 27 mmol/L (22-30); Chloride 102 mmol/L (98-107); Estimated CRCL calculation 125 ml/min; Estimated Glomerular Filt Rate > 60; Glucose 117 mg/dL (65-110); Lipase 98 U/L (23-300); Potassium 3.6 mmol/L (3.4-5.0); Sodium 141 mmol/L (137-145)
--- NOTE | 2023-12-06 21:01 | PC.NURSE ---
this patient has been repositioned and is now moaning and can be heard at nurses station. RN made MD aware.
--- NOTE | 2023-12-06 21:04 | PC.NURSE ---
MD Moeller in with patient at this time.
[2023-12-06] MEDS: ONDANSETRON INJ 4 MG/2 ML VIAL IV PUSH (21:11)
[2023-12-06] MEDS: LACTATED RINGERS 1,000 ML 999 ML IV CONT (21:11)
[2023-12-06] MEDS: HYDROmorphone HCL INJ (*CRX) 1 MG/ML SYR IV PUSH (21:11)
[2023-12-06 21:19] VITALS: O2SAT 84
[2023-12-06 21:20] VITALS: O2SAT 94
--- NOTE | 2023-12-06 21:20 | PC.NURSE ---
RN noticed patient desaturation at nurses station. Patient placed on 2L NC to maintain saturation above 92.
[2023-12-06 21:22] VITALS: O2SAT 95
[2023-12-06 21:27] VITALS: BP 150/79; PULSE 65; RESP 16; O2SAT 94
--- NOTE | 2023-12-06 21:31 | PC.NURSE ---
radiology in to get patient for CT at this time.
--- NOTE | 2023-12-06 21:48 | PC.NURSE ---
patient is back from CT at this time.
--- NOTE | 2023-12-06 22:07 | PC.NURSE ---
This patient is moaning in pain loudly and can be heard at nurses station. Patient is constantly moving around on the ER stretcher. made aware.
--- NOTE | 2023-12-06 22:33 | ED_ITS ---
HPI - Abdominal Pain General Chief Complaint: Abdominal Pain Stated Complaint: left sided abd pain Time Seen by Provider: 12/06/23 20:43 History of Present Illness HPI narrative: 53-year-old male with a past medical history significant for diverticulosis and kidney stones presenting to the emergency department with a chief complaint of left lower quadrant abdominal pain. He states that it feels somewhat similar to his previous kidney stone but more severe. No recent kidney stone. No urinary issues such as hematuria, dysuria. No issues in the restroom with defecation, no tarry stools or melena. Denies any fever, chills. Was otherwise in his normal state of health. Symptoms were going on for last 2 days. Related Data Allergies Allergy/AdvReac Type Severity Reaction Status Date / Time No Known Allergies Allergy Verified 12/06/23 19:53 Review of Systems Review of Systems: As reviewed [facility] Past Medical History Medical History Cerebrovascular accident (~01/2023) Colon cancer screening Family history of colon cancer Hyperlipidemia Hypertension Implantable loop recorder present Left homonymous hemianopsia (~01/2023) Surgical History Surgical History History of bilateral inguinal hernia repair (~09/2008) Family History Family History Mother Carcinoma of colon Father Carcinoma of colon Social History Social History Smoking status: Never smoker Alcohol intake: never Substance use: never Substance use type: does not use Do You Feel Safe in your Home?: Yes Lack of Transportation: No Lack of Food: Never True Current Housing: I Have Housing Concerned About Future Housing: No Difficulty Paying Gas/Electric Bills: No Difficulty Paying for Meds: No Currently Unemployed: No Education: Bachelor's Degree Difficulty w/ Childcare or Family Care: No Living arrangements: with family Spiritual care concerns: No Exam Narrative: GENERAL: Uncomfortable appearing but awake alert answering all my questions. No distress. HEAD: [Normocephalic, atraumatic.] EYES: [PERRLA and EOMI.] ENT: Nares clear, no rhinorrhea or epistaxis. Mucous membranes moist. NECK: Supple. CHEST: [Clear to auscultation. No respiratory distress.] HEART: [Regular rate and rhythm]. No murmur heard. [Normal peripheral pulses.] ABDOMEN: [Soft, nondistended], tenderness to palpation over the left lower quadrant and left flank. No swelling or hernias appreciated, [No rigidity or guarding] EXTREMITIES: Normal range of motion. [No edema.] SKIN: Warm, dry, no rash. NEURO: [No focal deficits]. Alert and oriented [x3.] PSYCH: [Normal mood and affect.] Course Vital Signs Vital signs: Vital Signs Temperature 36.2 C L 12/06/23 19:50 Pulse Rate 97 12/06/23 19:50 Respiratory Rate 17 12/06/23 19:50 Blood Pressure 187/92 H 12/06/23 19:50 Pulse Oximetry 95 12/06/23 19:50 Oxygen Delivery Room Air 12/06/23 19:50 Temperature 36.2 C L 12/06/23 19:50 Pulse Rate 65 12/06/23 21:27 Respiratory Rate 16 12/06/23 21:27 Blood Pressure 150/79 H 12/06/23 21:27 Pulse Oximetry 94 12/06/23 21:27 Oxygen Delivery Nasal Cannula 12/06/23 21:22 Oxygen Flow Rate 2 12/06/23 21:22 MDM - Abdominal Pain MDM Narrative Medical decision making narrative: 53-year-old male presenting with left lower quadrant left flank pain. Symptoms were gone over last 2 days. He is afebrile, vital signs reassuring aside from stable hypertension. No urinary complaints. Symptoms ongoing for last 2 days. History kidney stones and diverticulosis. He does appear uncomfortable and has a tender abdomen but non peritoneal. Differential is broad but does include diverticulosis, diverticulitis, kidney stone, gastroenteritis. Will obtain laboratory studies and proceed with CT scan without contrast. He was treated with Dilaudid and fluids. Workup revealed no leukocytosis or anemia. Urinalysis shows blood but no infection signs. Electrolytes within normal limits, normal renal function panel. Normal hepatic function panel. Patient CT scan was independent reviewed by myself and also interpreted by radiology. I do appreciate a large obstructing calculus in the left UPJ with measurements of 0.7 x 8.6 mm according to radiology. There is associated nephrogram, perinephric fat stranding and severe left hydronephrosis. Bilateral nonobstructing nephrolithiasis also seen. No diverticulitis but evidence of diverticulosis. Chronic bony anomalies also seen. Patient was re-evaluated had worsening pain. He was given Flomax and fentanyl at this time. Consultation was placed to Urology on-call for management. Spoke to the on-call urologist Dr. Faulkner who after realizing the imaging findings and patient's assessment plans to do an operative stent tomorrow morning. Patient will be made NPO. Patient will be admitted to the hospitalist. Spoke to Dr. Patel was accepted the patient to observation admission for operation tomorrow. Patient was made NPO and I discussed the imaging findings with the patient and he was agreeable to the admission at this time. Medical Records Attestation: I reviewed the patient's medical records. Lab Data Attestation: I reviewed the patient's lab results. 12/06/23 20:16 12/06/23 20:16 Labs: Lab Results 12/06/23 Range/Units 20:16 WBC 8.4 (4.5-10.0) K/mm3 RBC 4.41 L (4.6-6.20) M/mm3 Hgb 14.2 (14.0-18.0) g/dL Hct 40.7 L (42.0-52.0) % MCV 92.3 (80-100) fl MCH 32.2 (26-34) pg MCHC 34.9 (32-36) g/dl RDW 12.0 (11.5-14.5) % Plt Count 184 (150-375) k/mm3 MPV 8.6 (7.4-10.4) fl Immature Gran % (Auto) 0.2 (0-0.5) % Neut % (Auto) 71.7 (45.5-73.1) % Lymph % (Auto) 19.0 (18.3-44.2) % [place] % (Auto) 7.3 (2.6-8.5) % Eos % (Auto) 1.3 (0-4.4) % Baso % (Auto) 0.5 (0.2-1.2) % Lymph # (Auto) 1.59 (0.9-3.2) K/mm3 [place] # (Auto) 0.6 (0.1-0.6) K/mm3 Eos # (Auto) 0.1 (0-0.3) K/mm3 Baso # (Auto) 0.0 (0.0-0.1) K/mm3 Abs Immat Gran (auto) 0.02 (0.00-0.031) K/mm3 Absolute Neuts (auto) 6.0 (1.3-6.7) K/mm3 Absolute Nucleated RBC 0.000 (0.0-0.012) K/mm3 Nucleated RBC % 0.0 (0.0-0.2) % Sodium 141 (137-145) mmol/L Potassium 3.6 (3.4-5.0) mmol/L Chloride 102 (98-107) mmol/L Carbon Dioxide 27 (22-30) mmol/L Anion Gap 12 (4-12) mmol/L BUN 20 (9-20) mg/dL Creatinine 0.80 (0.7-1.3) mg/dL Estim Creat Clear Calc 125 ml/min Estimated GFR > 60 (59 - ) Glucose 117 H (65-110) mg/dL Calcium 9.3 (8.4-10.2) mg/dL Total Bilirubin 0.7 (0.2-1.3) mg/dL AST 31 (17-59) U/L ALT 30 (6-50) U/L Alkaline Phosphatase 92 (38-126) U/L Total Protein 8.0 (6.3-8.2) g/dL Albumin 4.6 (3.5-5.1) g/dL Lipase 98 (23-300) U/L Urine Color Yellow (Yellow) Urine Appearance Clear (Clear) Urine pH 7.0 (5.0-9.0) Ur Specific [place] 1.017 (1.001-1.035) Urine Protein Negative (Negative) mg/dL Urine Glucose (UA) Negative (Negative) mg/dL Urine Ketones Negative (Negative) mg/dL Ur Blood (Man) 2+ H (Negative) Urine Nitrate Negative (Negative) Urine Bilirubin Negative (Negative) Urine Urobilinogen 1.0 (<2.0) mg/dL Leukocyte Esterase Rfl Negative (Negative) ROLA/UL Urine RBC 21-50 H (0-2) /hpf Urine WBC 0-5 (0-3) /hpf Ur Squamous Epith Cells None seen (Few) /hpf Urine Bacteria None seen /hpf Urine Casts 0-2 Imaging Data Attestation: I personally reviewed and interpreted this imaging study as follows: My impression: Impressions Abdomen/Pelvis CT 12/06/23 21:49 IMPRESSION: 0.7 x 8.6 mm left obstructing ureteropelvic duct calculus with prominent nephromegaly and perinephric stranding and moderately severe left hydronephrosis Bilateral mild nonobstructive nephrolithiasis Several hepatic cysts Normal appendix Diverticulosis of left and right colon; no evidence of diverticulitis Bilateral L5 pars interarticularis defects with grade 2 anterolisthesis at L5-S1 Degenerative disc disease particularly at L2-3 and L5-S1 Radiologist's impression: ITS Impressions Abdomen/Pelvis CT 12/06/23 21:49 IMPRESSION: 0.7 x 8.6 mm left obstructing ureteropelvic duct calculus with prominent nephromegaly and perinephric stranding and moderately severe left hydronephrosis Bilateral mild nonobstructive nephrolithiasis Several hepatic cysts Normal appendix Diverticulosis of left and right colon; no evidence of diverticulitis Bilateral L5 pars interarticularis defects with grade 2 anterolisthesis at L5-S1 Degenerative disc disease particularly at L2-3 and L5-S1 Discharge Plan Discharge Clinical Impression: Obstruction of left ureteropelvic junction (UPJ) due to stone Patient Disposition: Still a Patient Condition: Stable Instructions: Antibiotic Form Prescriptions: No Action amlodipine 10 mg tablet 10 mg PO DAILY Qty: 90 1RF aspirin [Children's Aspirin] 81 mg tablet,chewable 81 mg PO DAILY@0800 Qty: 90 1RF atorvastatin 40 mg tablet 40 mg PO QHS Qty: 90 1RF lisinopril 20 mg tablet 20 mg PO DAILY Qty: 90 1RF Follow-up/Referrals: Wayne Escobar MD [Primary Care Provider] - Time of Disposition: 22:52
[2023-12-06] MEDS: TAMSULOSIN HCL 0.4 MG CAPSULE PO (22:38)
[2023-12-06] MEDS: fentaNYL CITRATE INJ (*CRX) 100 MCG/2 ML VIAL IV PUSH (22:38)
[2023-12-06] MEDS: LACTATED RINGERS 1,000 ML 125 ML IV CONT (23:08)
--- NOTE | 2023-12-06 23:45 | PC.NURSE ---
RN on floor did not want report. RN taking patient to floor at this time.
[2023-12-06 23:57] VITALS: BMI 43.8
--- NOTE | 2023-12-06 23:58 | ADMGEN ---
This patient, Kory Cueva, was admitted to Medical Room [address] [place] [address] [id number]. Patient/family oriented to hospital policies and general routines including ID bracelet, bed and alarms, visiting hours, pain management, procedures, bathroom and other care routines, personal items, smoking policy, room service/diet, and visiting hours. Information on how to activate the Rapid Response Team has been discussed. Patient/Family are encouraged to report perceived risks to care and to ask questions if they do not understand what they are told or what they should do.
[2023-12-07] VITALS (18 sets, daily range): BP systolic 101–142; BP diastolic 49–84; PULSE 55–80; RESP 12–20; TEMP 36.3–37.1; O2SAT 90–100; BMI 43.7
[2023-12-07] MEDS: HYDROmorphone HCL INJ (*CRX) 1 MG/ML SYR 0.5 MG IV PUSH (00:13)
--- NOTE | 2023-12-07 01:50 | P.HP_ITS ---
H&P: HPI History of Present Illness Date/Time: 12/07/23 01:50 Chief Complaint: Flank pain Narrative: 53-year-old male with a history of CVA with residual left homonymous hemianopia. Patient reports the left upper quadrants have improved somewhat over time. History of obesity, ISHA on NIPPV at home, hypertension, hyperlipidemia. The patient presents with left lower quadrant abdominal pain for 2 days. He reports a remote kidney stone but never had any intervention. He denies any other associated symptoms. Denies nausea vomiting abdominal pain diarrhea. [facility] ER evaluation on 12/06/[address] abdomen pelvis without contrast which demonstrated a 4.7 x 8.6 mm left ureteropelvic junction calculus with associated moderately severe left hydro ureter nephrosis, prominent left perinephric stranding, left nephromegaly. There is mild prostate enlargement and calcification. He was given Dilaudid 1 mg IV x1, Zofran, 1 L lactated Ringer's, 100 mcg fentanyl IV push x1, tamsulosin 0.4 mg p.o. x1. Urology Dr. Faulkner was contacted from the ER. Requested patient may be NPO and plan for operative stent on 12/07/2023. Admitted under the hospitalist service. Review of Systems Review of Systems: All systems reviewed & are unremarkable except as noted in HPI and below (Subjective) PMFSH Past Medical History Medical History Cerebrovascular accident (~01/2023) Colon cancer screening Family history of colon cancer Hyperlipidemia Hypertension Implantable loop recorder present Left homonymous hemianopsia (~01/2023) Surgical History Surgical History History of bilateral inguinal hernia repair (~09/2008) Family History Family History Mother Carcinoma of colon Father Carcinoma of colon Social History Social History Smoking status: Never smoker Alcohol intake: never Substance use: current Substance use type: does not use Do You Feel Safe in your Home?: Yes Lack of Transportation: No Lack of Food: Never True Current Housing: I Have Housing Concerned About Future Housing: No Difficulty Paying Gas/Electric Bills: No Difficulty Paying for Meds: No Currently Unemployed: No Education: Bachelor's Degree Difficulty w/ Childcare or Family Care: No Living arrangements: with family Spiritual care concerns: No Meds Home Medications and Allergies Home Medications Medication Instructions Recorded Confirmed Type amlodipine 10 mg tablet 10 mg PO DAILY #90 tabs 02/26/23 12/07/23 Rx aspirin 81 mg chewable tablet 81 mg PO DAILY@0800 #90 tabs 10/09/23 12/07/23 Rx (Children's Aspirin) atorvastatin 40 mg tablet 40 mg PO QHS #90 tabs 10/27/23 12/07/23 Rx lisinopril 20 mg tablet 20 mg PO DAILY #90 tabs 11/03/23 12/07/23 Rx Allergies Allergy/AdvReac Type Severity Reaction Status Date / Time No Known Allergies Allergy Verified 12/06/23 19:53 Vital Signs Vital Signs - 24 hr 12/06/23 19:50 12/06/23 21:19 12/06/23 21:20 Temperature 97.1 F L Pulse Rate 97 Respiratory Rate 17 Blood Pressure 187/92 H Pulse Oximetry 95 84 L 94 Oxygen Delivery Room Air Oxygen Flow Rate 12/06/23 21:22 12/06/23 21:27 12/07/23 00:01 Temperature 98.2 F Pulse Rate 65 80 Respiratory Rate 16 18 Blood Pressure 150/79 H 142/80 H Pulse Oximetry 95 94 95 Oxygen Delivery Nasal Cannula Oxygen Flow Rate 2 12/07/23 00:00 12/07/23 00:58 Temperature 98.2 F Pulse Rate 70 Respiratory Rate 20 Blood Pressure 139/84 Pulse Oximetry 97 95 Oxygen Delivery Nasal Cannula Oxygen Flow Rate 2 Exam Const: General: comfortable and no acute distress Other: A&O x3 HENMT: Mouth: Yes moist mucous membranes Eyes: Pupils: Equal, round and reactive pupils present Neck: Neck: supple Resp: Effort & Inspection: normal respiratory effort Auscultation: clear to auscultation bilaterally Cardio: Rate: regular rate Rhythm: regular rhythm GI: Inspection: non-distended GI Palp: Yes Soft to palpation and No Tenderness to palpation present (GI) Other: Protuberant abdomen : General: Yes bladder normal to palpation Neuro: Other: No focal deficits Extrem: General: no edema H&P: Results Labs Labs: Short CBC 12/06/23 Range/Units 20:16 WBC 8.4 (4.5-10.0) K/mm3 Hgb 14.2 (14.0-18.0) g/dL Hct 40.7 L (42.0-52.0) % Plt Count 184 (150-375) k/mm3 BMP 12/06/23 20:16 Sodium 141 Potassium 3.6 Chloride 102 Carbon Dioxide 27 BUN 20 Creatinine 0.80 Glucose 117 H Calcium 9.3 Liver Function 12/06/23 Range/Units 20:16 Total Bilirubin 0.7 (0.2-1.3) mg/dL AST 31 (17-59) U/L ALT 30 (6-50) U/L Alkaline Phosphatase 92 (38-126) U/L Albumin 4.6 (3.5-5.1) g/dL Urine 12/06/23 Range/Units 20:16 Urine Color Yellow (Yellow) Urine Appearance Clear (Clear) Urine pH 7.0 (5.0-9.0) Ur Specific [place] 1.017 (1.001-1.035) Urine Protein Negative (Negative) mg/dL Urine Glucose (UA) Negative (Negative) mg/dL Assessment and Plan Assessment and plan (1) Obstruction of left ureteropelvic junction (UPJ) due to stone: Code(s): N20.1 - Calculus of ureter Status: Acute (2) Obstructive sleep apnea: Code(s): G47.33 - Obstructive sleep apnea (adult) (pediatric) Status: Acute (3) Acute hypoxemic respiratory failure: Code(s): J96.01 - Acute respiratory failure with hypoxia Status: Acute Plan 53-year-old male with a history of CVA with residual left homonymous hemianopia. Patient reports the left upper quadrants have improved somewhat over time. History of obesity, ISHA on NIPPV at home, hypertension, hyperlipidemia. The patient presents with left lower quadrant abdominal pain for 2 days. He reports a remote kidney stone but never had any intervention. He denies any other associated symptoms. Denies nausea vomiting abdominal pain diarrhea. [facility] ER evaluation on 12/06/[address] abdomen pelvis without contrast which demonstrated a 4.7 x 8.6 mm left ureteropelvic junction calculus with associated moderately severe left hydro ureter nephrosis, prominent left perinephric stranding, left nephromegaly. There is mild prostate enlargement and calcification. He was given Dilaudid 1 mg IV x1, Zofran, 1 L lactated Ringer's, 100 mcg fentanyl IV push x1, tamsulosin 0.4 mg p.o. x1. Urology Dr. Faulkner was contacted from the ER. Requested patient may be NPO and plan for operative stent on 12/07/2023. Admitted under the hospitalist service. ----- NPO. Urology consultation. Anticipate stent on 12/07/2023. Lactated Ringer's at 125 cc/hour. He is currently on 2 L nasal cannula. The patient wears NIPPV at home for ISHA. His pain is improved but after some hours it returns. Considering he has acute hypoxic respiratory failure likely as an adverse effect of narcotic use in the setting of ISHA we have discussed the importance of avoiding narcotics if possible. We have discussed the benefits and risk including respiratory depression. The patient has been counseled to only use pain medications as necessary and to understand the risk of respiration depression, deterioration and deateh. He is aware. Tylenol p.r.n., Toradol p.r.n., [place] p.r.n.. Toradol can be used for anti-inflammatory [place] to help keep the baseline pain management. Dilaudid 0.5 mg q.4 hours only as very necessary. CPAP has been ordered. Capnography ordered. Will also check a chest x-ray as well as a quad viral screen. Start incentive spirometer now to help intercostal muscle strength and prevent atelectasis and to get ahead of anticipated procedure requiring anesthesia. Patient otherwise denies upper respiratory symptoms. ----- Restart his [employer] atorvastatin. Hold [employer] amlodipine, aspirin, lisinopril SCDs. NPO. Lactated Ringer's. Pain control as above. Urology consultation. Patient wished to be full code. Hospitalist [facility] Advance Care Plan I have confirmed that the patient's Advanced Care Plan is present, code status is documented, or surrogate decision maker is listed in patient medical record.: Yes Medication Reconciliation I have utilized all available resources to obtain, update and review the patients current medications (includes all prescriptions, OTC, herbals, cannabis, and nutritional supplements).: Yes
[2023-12-07] MEDS: ACETAMINOPHEN 325 MG TABLET 650 MG PO (02:05)
[2023-12-07] MEDS: KETOROLAC 30 MG/ML VIAL (*BKC) IV PUSH (02:55)
[2023-12-07 03:38] LABS: Influenza A QL RT-PCR Negative (Negative); Influenza B QL RT-PCR Negative (Negative); RSV RNA, RT-PCR Negative (Negative); SARS-CoV-2 RNA PCR Negative (Negative)
--- NOTE | 2023-12-07 04:16 | PC.NURSE ---
Hospitalist ordered capnography. Pt uses cpap HS. Respiratory notified that capnography cannot be used in conjunction with cpap. Hospitalist made aware by adjusto writer operator.
[2023-12-07 05:52] LABS: Hematocrit 36.7 % (42.0-52.0); Hemoglobin 12.7 g/dL (14.0-18.0); Mean Corpuscular HGB Conc 34.6 g/dl (32-36); Mean Corpuscular Hemoglobin 32.3 pg (26-34); Mean Corpuscular Volume 93.4 fl (80-100); Mean Platelet Volume 8.5 fl (7.4-10.4); Platelet Count Result 167 k/mm3 (150-375); Red Blood Count 3.93 M/mm3 (4.6-6.20); Red Cell Distribution Width 11.9 % (11.5-14.5); White Blood Count 8.3 K/mm3 (4.5-10.0)
[2023-12-07 06:02] LABS: Anion Gap 6 mmol/L (4-12); Blood Urea Nitrogen 16 mg/dL (9-20); Calcium 8.5 mg/dL (8.4-10.2); Carbon Dioxide 31 mmol/L (22-30); Chloride 101 mmol/L (98-107); Estimated CRCL calculation 112 ml/min; Estimated Glomerular Filt Rate > 60; Glucose 113 mg/dL (65-110); Potassium 3.9 mmol/L (3.4-5.0); Sodium 138 mmol/L (137-145)
[2023-12-07 06:10] LABS: INR 1.1; Prothrombin Time 14.7 Seconds (11.1-14.7)
--- NOTE | 2023-12-07 10:07 | P.PNIM_ITS ---
Progress Note: A&P Assessment and Plan (1) Obstruction of left ureteropelvic junction (UPJ) due to stone: Code(s): N20.1 - Calculus of ureter Status: Acute Assessment and Plan: * Urology consulted with the following procedure today: Procedure Performed 1. Cystoscopy 2. Left retrograde pyelogram with intraoperative interpretation 3. Left ureteral stent placement * Regular diet after procedure. * Pain control: Acetaminophen 650 mg PO q 4 PRN, Hydrocodone/APAP 5-325 mg 1 tab PO q 4 PRN, Toradol 30 mg IVP q 6 PRN, and Hydromorphone 0.5 mg IV q 4 PRN only if high pain. (2) Obstructive sleep apnea: Code(s): G47.33 - Obstructive sleep apnea (adult) (pediatric) Status: Acute Assessment and Plan: * Wears CPAP at home, CPAP ordered. (3) Acute hypoxemic respiratory failure: Code(s): J96.01 - Acute respiratory failure with hypoxia Status: Acute Assessment and Plan: * Sa02 94% RA. * Chest X-ray showed: Chronic marked elevation of right hemidiaphragm with mild atelectasis at right lung base. Subjective Date/time seen: 12/07/23 10:07 Interval history: Patient reports pain in left side is a 1 , constant, and aching. Patient denies chest pain, palpitations, headache, dizziness, nausea, vomiting, or back pain. Review of Systems Review of Systems: All systems reviewed & are unremarkable except as noted in HPI and below Exam Const: General: no acute distress and uncomfortable Eyes: Sclera: sclerae normal Resp: Effort & Inspection: normal respiratory effort Auscultation: clear to auscultation bilaterally Cardio: Rate: regular rate Rhythm: regular rhythm GI: GI Palp: Yes Soft to palpation Auscultation: normal bowel sounds Other: Protuberant abdomen Skin: General skin exam: no rashes or lesions noted Neuro: Speech: normal speech Extrem: General: normal to inspection and no pedal edema Psych: Mental Status: mental status grossly normal Affect: normal affect Objective Data Vital Signs Vital Signs: Vital Signs - 24 hr 12/06/23 19:50 12/06/23 21:19 12/06/23 21:20 Temperature 97.1 F L Pulse Rate 97 Respiratory Rate 17 Blood Pressure 187/92 H Pulse Oximetry 95 84 L 94 Oxygen Delivery Room Air Oxygen Flow Rate 12/06/23 21:22 12/06/23 21:27 12/07/23 00:01 Temperature 98.2 F Pulse Rate 65 80 Respiratory Rate 16 18 Blood Pressure 150/79 H 142/80 H Pulse Oximetry 95 94 95 Oxygen Delivery Nasal Cannula Oxygen Flow Rate 2 12/07/23 00:00 12/07/23 00:58 12/07/23 03:49 Temperature 98.2 F Pulse Rate 70 64 Respiratory Rate 20 19 Blood Pressure 139/84 Pulse Oximetry 97 95 94 Oxygen Delivery Nasal Cannula BiPAP Oxygen Flow Rate 2 12/07/23 06:00 12/07/23 07:40 12/07/23 08:00 Temperature 98.2 F Pulse Rate 66 Respiratory Rate 20 Blood Pressure 113/69 Pulse Oximetry 92 90 Oxygen Delivery Room Air Room Air Oxygen Flow Rate Intake/Output Intake/Output: Intake & Output 12/04/23 12/05/23 12/06/23 12/07/23 23:59 23:59 23:59 23:59 Intake Total 1000 0 Balance 1000 0 Meds/Results Medications: Active Medications Generic Name Dose Route Start Last Admin Trade Name Freq PRN Reason Stop Dose Admin Acetaminophen 650 mg 12/06/23 22:52 12/07/23 02:05 Acetaminophen 325 Mg Tablet PO 650 mg Q4H PRN Administration Mild Pain (1-3) or Fever Hydrocodone Bitart/Acetaminophen 1 tab 12/06/23 22:52 Hydrocodone/Acetaminophen (*Crx) 5-325 Mg Tablet PO Q4H PRN Pain Rated 4-6 Atorvastatin Calcium 40 mg 12/07/23 21:00 Atorvastatin 40 Mg Tablet PO QHS ALVA Hydromorphone HCl 0.5 mg 12/06/23 22:52 12/07/23 00:13 Hydromorphone Hcl Inj (*Crx) 1 Mg/Ml Syr IV PUSH 0.5 mg Q4H PRN Administration Pain Rated 7-10 Lactated Ringer's 1,000 mls @ 125 mls/hr 12/06/23 22:55 12/06/23 23:08 Lr - Lactated Ringers Iv IV CONT 125 mls/hr .Q8H ALVA Administration Ketorolac Tromethamine 30 mg 12/07/23 01:50 12/07/23 02:55 Ketorolac 30 Mg/Ml Vial (*Bkc) IV PUSH 30 mg Q6H PRN Administration Pain Rated 4-6 Ondansetron HCl 4 mg 12/06/23 22:52 Ondansetron Inj 4 Mg/2 Ml Vial IV PUSH Q4H PRN Nausea Radiology Results: ITS Impressions Abdomen/Pelvis CT 12/06/23 21:49 IMPRESSION: 0.7 x 8.6 mm left obstructing ureteropelvic duct calculus with prominent nephromegaly and perinephric stranding and moderately severe left hydronephrosis Bilateral mild nonobstructive nephrolithiasis Several hepatic cysts Normal appendix Diverticulosis of left and right colon; no evidence of diverticulitis Bilateral L5 pars interarticularis defects with grade 2 anterolisthesis at L5-S1 Degenerative disc disease particularly at L2-3 and L5-S1 Chest X-Ray 12/07/23 06:10 IMPRESSION: 1. Chronic marked elevation of right hemidiaphragm with mild atelectasis at right lung base. Labs Labs: Laboratory Results - last 24 hr 12/06/23 12/07/23 12/07/23 20:16 02:42 05:45 WBC 8.4 8.3 RBC 4.41 L 3.93 L Hgb 14.2 12.7 L Hct 40.7 L 36.7 L MCV 92.3 93.4 MCH 32.2 32.3 MCHC 34.9 34.6 RDW 12.0 11.9 Plt Count 184 167 MPV 8.6 8.5 Immature Gran % (Auto) 0.2 Neut % (Auto) 71.7 Lymph % (Auto) 19.0 [place] % (Auto) 7.3 Eos % (Auto) 1.3 Baso % (Auto) 0.5 Lymph # (Auto) 1.59 [place] # (Auto) 0.6 Eos # (Auto) 0.1 Baso # (Auto) 0.0 Abs Immat Gran (auto) 0.02 Absolute Neuts (auto) 6.0 Absolute Nucleated RBC 0.000 Nucleated RBC % 0.0 PT 14.7 INR 1.1 Sodium 141 138 Potassium 3.6 3.9 Chloride 102 101 Carbon Dioxide 27 31 H Anion Gap 12 6 BUN 20 16 Creatinine 0.80 0.90 Estim Creat Clear Calc 125 112 Estimated GFR > 60 > 60 Glucose 117 H 113 H Calcium 9.3 8.5 Total Bilirubin 0.7 AST 31 ALT 30 Alkaline Phosphatase 92 Total Protein 8.0 Albumin 4.6 Lipase 98 Urine Color Yellow Urine Appearance Clear Urine pH 7.0 Ur Specific [place] 1.017 Urine Protein Negative Urine Glucose (UA) Negative Urine Ketones Negative Ur Blood (Man) 2+ H Urine Nitrate Negative Urine Bilirubin Negative Urine Urobilinogen 1.0 Leukocyte Esterase Rfl Negative Urine RBC 21-50 H Urine WBC 0-5 Ur Squamous Epith Cells None seen Urine Bacteria None seen Urine Casts 0-2 Influenza A (RT-PCR) Negative Influenza B (RT-PCR) Negative RSV (RT-PCR) Negative SARS-CoV-2 RNA (RT-PCR) Negative Quality VTE Prophylaxis VTE prophylaxis: mechanical ordered
--- NOTE | 2023-12-07 10:16 | P.CONUR_ITS ---
Assessment and Plan Assessment and plan (1) Obstruction of left ureteropelvic junction (UPJ) due to stone: Code(s): N20.1 - Calculus of ureter Status: Acute Plan 53yM with 8mm left UPJ stone with hydronephrosis - NPO since midnight, IVF - Labs reviewed. No leukocytosis. Serum creatinine WNL. Urinalysis unremarkable for infection. - To OR for cystoscopy, left retrograde pyelogram, left ureteral stent - Risks, benefits, alternatives reviewed with patient. He expressed understanding and agreement to proceed - Patient understands plan for stent placement today with need for secondary procedure in the future after a period of passive ureteral dilation with stent in place. Patient also understands need for follow-up procedure in the office for stent removal. Patient understands the rare possibility that if I am unable to place a ureteral stent in retrograde fashion he will need placement of nephrostomy tube to decompress the left collecting system, which would be performed by interventional radiology. Patient understands common stent symptoms to expect including but not limited to urinary frequency and urgency, hematuria, and bladder spasms/cramping. - Remainder of management per primary - From a urology standpoint patient may be discharged following stent placement as long as his pain is controlled, he is tolerating PO i intake, voiding spontaneously, and ambulating Urology Consult Note HPI Date Seen: 12/07/23 Requesting Physician: Claudette Patel MD Primary Care Provider: Lindsay Escobar MD Consult Narrative Narrative: Kory Cueva is a 53 year old male with PMHx of CVA with left homonymous hemianopsia, HTN, HLD who presented to the ED yesterday for left abdominal/flank pain x2 days. He denies associated fevers, chills, nausea, vomiting, dysuria. He has prior history of kidney stones but has never had surgery for them. Workup including CT showed an 8mm left UPJ stone with associated hydronephrosis in addition to smaller bilateral nonobstructing renal stones. He has been NPO since midnight. Review of Systems Constitutional: Constitutional: Denies chills and Denies fever(s) Eyes: Eyes: Denies blurry vision ENT: Denies dizziness Cardiovascular: Cardiovascular: Denies chest pain Respiratory: Respiratory: Denies dyspnea Gastrointestinal: Gastrointestinal: Denies vomiting Genitourinary: Genitourinary: Denies hematuria and Denies dysuria Neurologic: Denies dizziness Psychiatric: Psychiatric: Denies confusion Endocrine: Endocrine: Denies palpitations [facility] Past Medical History Medical History Cerebrovascular accident (~01/2023) Colon cancer screening Family history of colon cancer Hyperlipidemia Hypertension Implantable loop recorder present Left homonymous hemianopsia (~01/2023) Surgical History Surgical History History of bilateral inguinal hernia repair (~09/2008) Family History Family History Mother Carcinoma of colon Father Carcinoma of colon Social History Social History Smoking status: Never smoker Alcohol intake: never Substance use: current Substance use type: does not use Do You Feel Safe in your Home?: Yes Lack of Transportation: No Lack of Food: Never True Current Housing: I Have Housing Concerned About Future Housing: No Difficulty Paying Gas/Electric Bills: No Difficulty Paying for Meds: No Currently Unemployed: No Education: Bachelor's Degree Difficulty w/ Childcare or Family Care: No Living arrangements: with family Spiritual care concerns: No Meds Home Medications and Allergies Home Medications Medication Instructions Recorded Confirmed Type amlodipine 10 mg tablet 10 mg PO DAILY #90 tabs 02/26/23 12/07/23 Rx aspirin 81 mg chewable tablet 81 mg PO DAILY@0800 #90 tabs 10/09/23 12/07/23 Rx (Children's Aspirin) atorvastatin 40 mg tablet 40 mg PO QHS #90 tabs 10/27/23 12/07/23 Rx lisinopril 20 mg tablet 20 mg PO DAILY #90 tabs 11/03/23 12/07/23 Rx Allergies Allergy/AdvReac Type Severity Reaction Status Date / Time No Known Allergies Allergy Verified 12/06/23 19:53 Vital Signs Vital Signs - 24 hr 12/06/23 19:50 12/06/23 21:19 12/06/23 21:20 Temperature 36.2 C L Pulse Rate 97 Respiratory Rate 17 Blood Pressure 187/92 H Pulse Oximetry 95 84 L 94 Oxygen Delivery Room Air Oxygen Flow Rate 12/06/23 21:22 12/06/23 21:27 12/07/23 00:01 Temperature 36.8 C Pulse Rate 65 80 Respiratory Rate 16 18 Blood Pressure 150/79 H 142/80 H Pulse Oximetry 95 94 95 Oxygen Delivery Nasal Cannula Oxygen Flow Rate 2 12/07/23 00:00 12/07/23 00:58 12/07/23 03:49 Temperature 36.8 C Pulse Rate 70 64 Respiratory Rate 20 19 Blood Pressure 139/84 Pulse Oximetry 97 95 94 Oxygen Delivery Nasal Cannula BiPAP Oxygen Flow Rate 2 12/07/23 06:00 12/07/23 07:40 12/07/23 08:00 Temperature 36.8 C Pulse Rate 66 Respiratory Rate 20 Blood Pressure 113/69 Pulse Oximetry 92 90 Oxygen Delivery Room Air Room Air Oxygen Flow Rate Exam Const: Other: Alert, NAD HENMT: Other: Normocephalic atraumatic Neck: Other: Supple Resp: Other: No signs of respiratory distress Cardio: Other: Regular rate GI: Other: Soft, nontender, nondistended : Other: Left CVAT Skin: Other: No rash Extrem: Other: Moves all 4 Psych: Other: Answers questions appropriately Results Labs 12/07/23 05:45 12/07/23 05:45 Labs: Short CBC 12/06/23 12/07/23 Range/Units 20:16 05:45 WBC 8.4 8.3 (4.5-10.0) K/mm3 Hgb 14.2 12.7 L (14.0-18.0) g/dL Hct 40.7 L 36.7 L (42.0-52.0) % Plt Count 184 167 (150-375) k/mm3 [facility] 12/06/23 12/07/23 20:16 05:45 Sodium 141 138 Potassium 3.6 3.9 Chloride 102 101 Carbon Dioxide 27 31 H BUN 20 16 Creatinine 0.80 0.90 Glucose 117 H 113 H Calcium 9.3 8.5 Liver Function 12/06/23 Range/Units 20:16 Total Bilirubin 0.7 (0.2-1.3) mg/dL AST 31 (17-59) U/L ALT 30 (6-50) U/L Alkaline Phosphatase 92 (38-126) U/L Albumin 4.6 (3.5-5.1) g/dL Urine 12/06/23 Range/Units 20:16 Urine Color Yellow (Yellow) Urine Appearance Clear (Clear) Urine pH 7.0 (5.0-9.0) Ur Specific [place] 1.017 (1.001-1.035) Urine Protein Negative (Negative) mg/dL Urine Glucose (UA) Negative (Negative) mg/dL Imaging My impression: 8 mm left UPJ stone with hydronephrosis and perinephric stranding. Two small left and one small right nonobstructing renal stones
--- NOTE | 2023-12-07 10:54 | PC.NURSE ---
Patient off floor to surgery via bed. Report given to Sunshine RODARTE.
[2023-12-07] MEDS: LIDOCAINE HCL 2% GEL UROJET 10 ML PKG MUCOUS MEM (11:07)
--- NOTE | 2023-12-07 11:08 | WPDANESEPPF ---
Anes - Initial Pre Proc Eval Procedure: Operation Date: 12/07/23 11:00 Proposed Procedures p Cysto, RPG, Stone Ext, Stent Placement Special(Left) - John Faulkner MD Date/Time: 12/07/23 11:08 Surgeon: Claudette Patel MD Pre Op Diagnosis: Obstructing kidney stone Patient Data Age: 53 Gender: M Height: 1.75 m Weight: 134.3 kg Last Vital Signs Temp 98.2 F 12/07/23 06:00 Pulse 66 12/07/23 06:00 Resp 20 12/07/23 06:00 BP 113/69 12/07/23 06:00 Pulse Ox 90 12/07/23 07:40 O2 Del Method Room Air 12/07/23 08:00 O2 Flow Rate 2 12/07/23 00:58 Allergies Allergy/AdvReac Type Severity Reaction Status Date / Time No Known Allergies Allergy Verified 12/06/23 19:53 Home Medications Medication Instructions Recorded Confirmed Type amlodipine 10 mg tablet 10 mg PO DAILY #90 tabs 02/26/23 12/07/23 Rx aspirin 81 mg chewable tablet 81 mg PO DAILY@0800 #90 tabs 10/09/23 12/07/23 Rx (Children's Aspirin) atorvastatin 40 mg tablet 40 mg PO QHS #90 tabs 10/27/23 12/07/23 Rx lisinopril 20 mg tablet 20 mg PO DAILY #90 tabs 11/03/23 12/07/23 Rx Laboratory Tests 12/06/23 12/07/23 12/07/23 20:16 02:42 05:45 WBC 8.4 K/mm3 8.3 K/mm3 (4.5-10.0) (4.5-10.0) RBC 4.41 L M/mm3 3.93 L M/mm3 (4.6-6.20) (4.6-6.20) Hgb 14.2 g/dL 12.7 L g/dL (14.0-18.0) (14.0-18.0) Hct 40.7 L % 36.7 L % (42.0-52.0) (42.0-52.0) MCV 92.3 fl 93.4 fl (80-100) (80-100) MCH 32.2 pg 32.3 pg (26-34) (26-34) MCHC 34.9 g/dl 34.6 g/dl (32-36) (32-36) RDW 12.0 % 11.9 % (11.5-14.5) (11.5-14.5) Plt Count 184 k/mm3 167 k/mm3 (150-375) (150-375) MPV 8.6 fl 8.5 fl (7.4-10.4) (7.4-10.4) Immature Gran % (Auto) 0.2 % (0-0.5) Neut % (Auto) 71.7 % (45.5-73.1) Lymph % (Auto) 19.0 % (18.3-44.2) [place] % (Auto) 7.3 % (2.6-8.5) Eos % (Auto) 1.3 % (0-4.4) Baso % (Auto) 0.5 % (0.2-1.2) Lymph # (Auto) 1.59 K/mm3 (0.9-3.2) [place] # (Auto) 0.6 K/mm3 (0.1-0.6) Eos # (Auto) 0.1 K/mm3 (0-0.3) Baso # (Auto) 0.0 K/mm3 (0.0-0.1) Abs Immat Gran (auto) 0.02 K/mm3 (0.00-0.031) Absolute Neuts (auto) 6.0 K/mm3 (1.3-6.7) Absolute Nucleated RBC 0.000 K/mm3 (0.0-0.012) Nucleated RBC % 0.0 % (0.0-0.2) PT 14.7 Seconds (11.1-14.7) INR 1.1 Sodium 141 mmol/L 138 mmol/L (137-145) (137-145) Potassium 3.6 mmol/L 3.9 mmol/L (3.4-5.0) (3.4-5.0) Chloride 102 mmol/L 101 mmol/L (98-107) (98-107) Carbon Dioxide 27 mmol/L 31 H mmol/L (22-30) (22-30) Anion Gap 12 mmol/L 6 mmol/L (4-12) (4-12) BUN 20 mg/dL 16 mg/dL (9-20) (9-20) Creatinine 0.80 mg/dL 0.90 mg/dL (0.7-1.3) (0.7-1.3) Estim Creat Clear Calc 125 ml/min 112 ml/min Estimated GFR > 60 > 60 (59 - ) (59 - ) Glucose 117 H mg/dL 113 H mg/dL (65-110) (65-110) Calcium 9.3 mg/dL 8.5 mg/dL (8.4-10.2) (8.4-10.2) Total Bilirubin 0.7 mg/dL (0.2-1.3) AST 31 U/L (17-59) ALT 30 U/L (6-50) Alkaline Phosphatase 92 U/L (38-126) Total Protein 8.0 g/dL (6.3-8.2) Albumin 4.6 g/dL (3.5-5.1) Lipase 98 U/L (23-300) Urine Color Yellow (Yellow) Urine Appearance Clear (Clear) Urine pH 7.0 (5.0-9.0) Ur Specific [place] 1.017 (1.001-1.035) Urine Protein Negative mg/dL (Negative) Urine Glucose (UA) Negative mg/dL (Negative) Urine Ketones Negative mg/dL (Negative) Ur Blood (Man) 2+ H (Negative) Urine Nitrate Negative (Negative) Urine Bilirubin Negative (Negative) Urine Urobilinogen 1.0 mg/dL (<2.0) Leukocyte Esterase Rfl Negative ROLA/UL (Negative) Urine RBC 21-50 H /hpf (0-2) Urine WBC 0-5 /hpf (0-3) Ur Squamous Epith Cells None seen /hpf (Few) Urine Bacteria None seen /hpf Urine Casts 0-2 Influenza A (RT-PCR) Negative (Negative) Influenza B (RT-PCR) Negative (Negative) RSV (RT-PCR) Negative (Negative) SARS-CoV-2 RNA (RT-PCR) Negative (Negative) Patient hx anesthesia problems: none Family hx anesthesia problems: none Results Review: All pre-operative results and documents have been reviewed as part of the pre-operative evaluation. [facility] Past Medical History Medical History Cerebrovascular accident (~01/2023) Colon cancer screening Family history of colon cancer Hyperlipidemia Hypertension Implantable loop recorder present Left homonymous hemianopsia (~01/2023) Surgical History Surgical History History of bilateral inguinal hernia repair (~09/2008) Family History Family History Mother Carcinoma of colon Father Carcinoma of colon Social History Social History Smoking status: Never smoker Alcohol intake: never Substance use: current Substance use type: does not use Do You Feel Safe in your Home?: Yes Lack of Transportation: No Lack of Food: Never True Current Housing: I Have Housing Concerned About Future Housing: No Difficulty Paying Gas/Electric Bills: No Difficulty Paying for Meds: No Currently Unemployed: No Education: Bachelor's Degree Difficulty w/ Childcare or Family Care: No Living arrangements: with family Spiritual care concerns: No Anes - Eval Final PreProcedure Day of Procedure 12/07/23 11:08 Patient weight: morbidly obese Heart: regular rate and rhythm Lungs: clear to auscultation Airway: Mallampati scale class II Neurological: alert and oriented Last oral intake: >/= 8 hours ASA classification: III Emergent: no Anesthetic plan: proceed Anesthesia type and monitoring: general LMA and standard monitoring Results Review: All pre-operative results and documents have been reviewed as part of the pre-operative evaluation. HTN, ,hyperlipidemia, ISHA on home bipap. Pt had CVA 01/2023 w residual L sided visual field deficits. KUNAL 01/2023 w nml LVEF, no or shunt. Informed Consent: The patient's anesthetic plan and its attendant risks and benefits were discussed with the patient/family/POA. Questions were solicited and answers provided to the satisfaction of the patient/family/POA.
[2023-12-07] MEDS: LACTATED RINGERS 1,000 ML 30 ML IV CONT (11:10)
--- NOTE | 2023-12-07 11:12 | WPDUROPN2 ---
Subjective Subjective Date/Time Seen: 12/07/23 11:12 Interval history: OR stating I need to write an update note despite seeing the patient a few minutes ago. I saw the patient prior to the procedure. No interval changes since my consult note a few minutes ago. OK to proceed to OR. Objective Data Vital Signs Vital Signs: Vital Signs - 24 hr 12/06/23 19:50 12/06/23 21:19 12/06/23 21:20 Temperature 36.2 C L Pulse Rate 97 Respiratory Rate 17 Blood Pressure 187/92 H Pulse Oximetry 95 84 L 94 Oxygen Delivery Room Air Oxygen Flow Rate 12/06/23 21:22 12/06/23 21:27 12/07/23 00:01 Temperature 36.8 C Pulse Rate 65 80 Respiratory Rate 16 18 Blood Pressure 150/79 H 142/80 H Pulse Oximetry 95 94 95 Oxygen Delivery Nasal Cannula Oxygen Flow Rate 2 12/07/23 00:00 12/07/23 00:58 12/07/23 03:49 Temperature 36.8 C Pulse Rate 70 64 Respiratory Rate 20 19 Blood Pressure 139/84 Pulse Oximetry 97 95 94 Oxygen Delivery Nasal Cannula BiPAP Oxygen Flow Rate 2 12/07/23 06:00 12/07/23 07:40 12/07/23 08:00 Temperature 36.8 C Pulse Rate 66 Respiratory Rate 20 Blood Pressure 113/69 Pulse Oximetry 92 90 Oxygen Delivery Room Air Room Air Oxygen Flow Rate Intake/Output Intake/Output: Intake & Output 12/04/23 12/05/23 12/06/23 12/07/23 23:59 23:59 23:59 23:59 Intake Total 1000 0 Balance 1000 0 Meds/Results Medications: Active Medications Generic Name Dose Route Start Last Admin Trade Name Freq PRN Reason Stop Dose Admin Acetaminophen 650 mg 12/06/23 22:52 12/07/23 02:05 Acetaminophen 325 Mg Tablet PO 650 mg Q4H PRN Administration Mild Pain (1-3) or Fever Hydrocodone Bitart/Acetaminophen 1 tab 12/06/23 22:52 Hydrocodone/Acetaminophen (*Crx) 5-325 Mg Tablet PO Q4H PRN Pain Rated 4-6 Atorvastatin Calcium 40 mg 12/07/23 21:00 Atorvastatin 40 Mg Tablet PO QHS ALVA Hydromorphone HCl 0.5 mg 12/06/23 22:52 12/07/23 00:13 Hydromorphone Hcl Inj (*Crx) 1 Mg/Ml Syr IV PUSH 0.5 mg Q4H PRN Administration Pain Rated 7-10 Lactated Ringer's 1,000 mls @ 125 mls/hr 12/06/23 22:55 12/06/23 23:08 Lr - Lactated Ringers Iv IV CONT 125 mls/hr .Q8H ALVA Administration Ketorolac Tromethamine 30 mg 12/07/23 01:50 12/07/23 02:55 Ketorolac 30 Mg/Ml Vial (*Bkc) IV PUSH 30 mg Q6H PRN Administration Pain Rated 4-6 Lidocaine HCl 10 ml 12/07/23 11:06 12/07/23 11:07 Lidocaine Hcl 2% Gel Urojet 10 Ml Pkg MUCOUS MEM 12/07/23 11:07 10 ml ONCE ONE Administration Ondansetron HCl 4 mg 12/06/23 22:52 Ondansetron Inj 4 Mg/2 Ml Vial IV PUSH Q4H PRN Nausea Radiology Results: ITS Impressions Abdomen/Pelvis CT 12/06/23 21:49 IMPRESSION: 0.7 x 8.6 mm left obstructing ureteropelvic duct calculus with prominent nephromegaly and perinephric stranding and moderately severe left hydronephrosis Bilateral mild nonobstructive nephrolithiasis Several hepatic cysts Normal appendix Diverticulosis of left and right colon; no evidence of diverticulitis Bilateral L5 pars interarticularis defects with grade 2 anterolisthesis at L5-S1 Degenerative disc disease particularly at L2-3 and L5-S1 Chest X-Ray 12/07/23 06:10 IMPRESSION: 1. Chronic marked elevation of right hemidiaphragm with mild atelectasis at right lung base. Labs Labs: Laboratory Results - last 24 hr 12/06/23 12/07/23 12/07/23 20:16 02:42 05:45 WBC 8.4 8.3 RBC 4.41 L 3.93 L Hgb 14.2 12.7 L Hct 40.7 L 36.7 L MCV 92.3 93.4 MCH 32.2 32.3 MCHC 34.9 34.6 RDW 12.0 11.9 Plt Count 184 167 MPV 8.6 8.5 Immature Gran % (Auto) 0.2 Neut % (Auto) 71.7 Lymph % (Auto) 19.0 [place] % (Auto) 7.3 Eos % (Auto) 1.3 Baso % (Auto) 0.5 Lymph # (Auto) 1.59 [place] # (Auto) 0.6 Eos # (Auto) 0.1 Baso # (Auto) 0.0 Abs Immat Gran (auto) 0.02 Absolute Neuts (auto) 6.0 Absolute Nucleated RBC 0.000 Nucleated RBC % 0.0 PT 14.7 INR 1.1 Sodium 141 138 Potassium 3.6 3.9 Chloride 102 101 Carbon Dioxide 27 31 H Anion Gap 12 6 BUN 20 16 Creatinine 0.80 0.90 Estim Creat Clear Calc 125 112 Estimated GFR > 60 > 60 Glucose 117 H 113 H Calcium 9.3 8.5 Total Bilirubin 0.7 AST 31 ALT 30 Alkaline Phosphatase 92 Total Protein 8.0 Albumin 4.6 Lipase 98 Urine Color Yellow Urine Appearance Clear Urine pH 7.0 Ur Specific [place] 1.017 Urine Protein Negative Urine Glucose (UA) Negative Urine Ketones Negative Ur Blood (Man) 2+ H Urine Nitrate Negative Urine Bilirubin Negative Urine Urobilinogen 1.0 Leukocyte Esterase Rfl Negative Urine RBC 21-50 H Urine WBC 0-5 Ur Squamous Epith Cells None seen Urine Bacteria None seen Urine Casts 0-2 Influenza A (RT-PCR) Negative Influenza B (RT-PCR) Negative RSV (RT-PCR) Negative SARS-CoV-2 RNA (RT-PCR) Negative
--- NOTE | 2023-12-07 11:38 | W.PM.PROC2 ---
Procedure Note - Detailed Date of Procedure 12/07/23 Pre-op Diagnosis Left ureteral stone Post-op Diagnosis Same Procedure Performed 1. Cystoscopy 2. Left retrograde pyelogram with intraoperative interpretation 3. Left ureteral stent placement Surgeon oJhn Faulkner MD Anesthesia General Indications Mr. Cueva is a 53-year-old gentleman who was found to have a left sided 8 mm ureteropelvic junction calculus with associated hydronephrosis. For this reason he underwent a discussion of the associated risks, benefits, alternatives to the aforementioned procedures and had expressed understanding and agreement to proceed. Patient specifically a expressed understanding for follow-up surgery for definitive stone treatment. Findings 1. Cystourethroscopy revealed lateral lobe hyperplasia with an elevated bladder neck. Orthotopic ureteral orifices bilaterally. No suspicious lesions, tumors, calculi, or active bleeding in the lower urinary tract. 2. Left retrograde pyelogram using a total of 10 mL of 50 50 mixture of contrast and saline showed mild left hydronephrosis with a filling defect at the left ureteropelvic junction commensurate with the patient's prior CT scan without contrast extravasation 3. Successful left ureteral stent placement without strings attached Description of Procedure after informed consent had been obtained, the patient was brought back to the operating theater and placed in supine position on the operating table or on anesthesia was induced. He was placed in a dorsal lithotomy position prepped and draped in the standard sterile fashion for an endoscopic case. Preoperative antibiotics were confirmed to have been administered. All pressure points were padded. Sequential compression devices were on and noted to be functioning. A formal time-out was performed to confirm the correct patient, site, and procedure and all were in agreement to proceed. To begin with I atraumatically advanced a 22 Taiwanese rigid cystoscope transurethrally into the patient's bladder. Bolanos cystoscopy was performed with findings as noted above. I then turned my attention to the patient's left ureteral orifice which was gently cannulated with a 5 Taiwanese open-ended catheter to the level of the left distal most ureter. through the catheter I performed a left-sided retrograde pyelogram with findings as noted above. I then advanced a Sensor wire through the open-ended catheter up to the level of the left kidney under fluoroscopy. Over top the wire I advanced the open-ended catheters level of left renal pelvis in order to determine the most appropriate length size for his stent. Afterwards I used a Seldinger maneuver to keep the Sensor wire in place while removing the open-ended catheter. Some cloudy urine was seen emanating from the left ureteral orifice and urine was collected and sent as a specimen for culture. Next, over top of the wire I passed a 6 Taiwanese variable length double-J ureteral stent without strings attached and used the pusher to deploy it in place. I confirmed a good proximal curl in the left kidney under fluoroscopy and a good distal curl in the bladder under both direct cystoscopic and fluoroscopic vision. I then removed the cystoscope, essentially concluded the case. The patient tolerated the procedure well and there were no immediate complications noted. He was awoken from anesthesia and taken to the recovery unit in stable condition. At the conclusion of the case all sponge, instrument, and sharp counts were correct x2. Disposition: Patient will be monitored in the PACU and then be transferred back to the [facility]anda after prep clearing PACU protocol. From there, patient may be clear for hospital discharge from a urology standpoint later today as long as his pain /nausea are controlled, he is tolerating oral intake, voiding spontaneously, and ambulating without issues. Patient will need to follow-up for definitive stone management surgery in the upcoming weeks, which Urology will make arrangements for. Implants 6 Taiwanese variable length ureteral stent on the left hand side without strings attached. Estimated Blood Loss 0
[2023-12-07] MEDS: fentaNYL CITRATE INJ (*CRX) 100 MCG/2 ML VIAL 25 MCG IV PUSH ×2 (12:04→12:09)
--- NOTE | 2023-12-07 12:55 | PC.NURSE ---
Patient returned to floor via bed from PACU. Report received from Rin RODARTE. No patient complaints at this time.
--- NOTE | 2023-12-07 15:13 | P.DS_ITS ---
DS: Admitting Diagnosis Discharge Date 12/07/2023 Admitting Diagnosis Left sided abdominal pain. DS: Discharge Diagnosis Discharge Diagnosis (1) Obstruction of left ureteropelvic junction (UPJ) due to stone: Code(s): N20.1 - Calculus of ureter Status: Acute (2) Acute hypoxemic respiratory failure: Code(s): J96.01 - Acute respiratory failure with hypoxia Status: Resolved (3) Obstructive sleep apnea: Code(s): G47.33 - Obstructive sleep apnea (adult) (pediatric) Status: Acute DS: Summary Hospital Course Hospital Course: [facility] ER evaluation on 12/06/[address] abdomen pelvis without contrast which demonstrated a 4.7 x 8.6 mm left ureteropelvic junction calculus with associated moderately severe left hydro ureter nephrosis, prominent left perinephric stranding, left nephromegaly. There is mild prostate enlargement and calcification. Urology consulted and completed the following procedure today: Procedure Performed 1. Cystoscopy 2. Left retrograde pyelogram with intraoperative interpretation 3. Left ureteral stent placement Patient with low pain of 2 after procedure and requesting to be discharged home. Urologist approved discharge. Status at Discharge Functional status at discharge: independent ambulation Overall status at discharge: patient is progressing back to baseline Time Spent with Patient Time attestation: Total time spent providing and/or coordinating discharge services: Time spent: Greater than 30 minutes Exam Narrative: General: no acute distress and uncom fortable Eyes: Sclera: sclerae no rmal Resp: Effort & Inspectio n: normal respirat ory effort Auscul tation: clear to a uscultation bilate rally Cardio: Rate: regular rate Rhythm: regular rhythm GI: GI Palp: Yes Soft to palpation Ausc ultation: normal b owel sounds Other : Protuberant ab domen Skin: General skin exam: no rashes or lesi ons noted Neuro: Speech: normal spe ech Extrem: General: normal to inspection and no pedal edema Psych: Mental Status: men adwoa status grossly normal Affect: n ormal affect DS: Data Data Completed and Pending Labs on day of discharge: Labs from last 24 hours 12/07/23 12/07/23 12/06/23 05:45 02:42 20:16 WBC 8.3 8.4 RBC 3.93 L 4.41 L Hgb 12.7 L 14.2 Hct 36.7 L 40.7 L MCV 93.4 92.3 MCH 32.3 32.2 MCHC 34.6 34.9 RDW 11.9 12.0 Plt Count 167 184 MPV 8.5 8.6 Immature Gran % (Auto) 0.2 Neut % (Auto) 71.7 Lymph % (Auto) 19.0 [place] % (Auto) 7.3 Eos % (Auto) 1.3 Baso % (Auto) 0.5 Lymph # (Auto) 1.59 [place] # (Auto) 0.6 Eos # (Auto) 0.1 Baso # (Auto) 0.0 Abs Immat Gran (auto) 0.02 Absolute Neuts (auto) 6.0 Absolute Nucleated RBC 0.000 Nucleated RBC % 0.0 PT 14.7 INR 1.1 Sodium 138 141 Potassium 3.9 3.6 Chloride 101 102 Carbon Dioxide 31 H 27 Anion Gap 6 12 BUN 16 20 Creatinine 0.90 0.80 Estim Creat Clear Calc 112 125 Estimated GFR > 60 > 60 Glucose 113 H 117 H Calcium 8.5 9.3 Total Bilirubin 0.7 AST 31 ALT 30 Alkaline Phosphatase 92 Total Protein 8.0 Albumin 4.6 Lipase 98 Urine Color Yellow Urine Appearance Clear Urine pH 7.0 Ur Specific [place] 1.017 Urine Protein Negative Urine Glucose (UA) Negative Urine Ketones Negative Ur Blood (Man) 2+ H Urine Nitrate Negative Urine Bilirubin Negative Urine Urobilinogen 1.0 Leukocyte Esterase Rfl Negative Urine RBC 21-50 H Urine WBC 0-5 Ur Squamous Epith Cells None seen Urine Bacteria None seen Urine Casts 0-2 Influenza A (RT-PCR) Negative Influenza B (RT-PCR) Negative RSV (RT-PCR) Negative SARS-CoV-2 RNA (RT-PCR) Negative Discharge Plan Discharge Attending physician on discharge: Basim Escalante Consulting providers: John Faulkner Discharging Clinician: Elsa Jay Anticipated Discharge Date/Time: 12/07/23 16:00 Patient Disposition: Home, Self-Care Activity: may shower and as tolerated Diet: regular Discharge Instructions: * You will need to follow up with urology in 1-2 weeks to discuss removal of the stent. Their office number is [phone]. Call for appointment. * Call Urology office if you develop blood in urine, fever, or increased pain uncontrolled with pain medication. * Drink lots of water to help with kidney and bladder function. * Can alternate Tylenol and Ibuprofen for pain control. Patient Instructions: Ureteral Stent Placement (DC) Stand Alone Forms: General Discharge Information Follow-up/Referrals: [facility] [place] [Provider Group] - 1 Week ([phone]) Discharge Medications: Continued amlodipine 10 mg tablet 10 mg PO DAILY Qty: 90 1RF aspirin [Children's Aspirin] 81 mg tablet,chewable 81 mg PO DAILY@0800 Qty: 90 1RF atorvastatin 40 mg tablet 40 mg PO QHS Qty: 90 1RF lisinopril 20 mg tablet 20 mg PO DAILY Qty: 90 1RF Date of admission: 12/06/23 22:52 Primary Care Provider: Wayne Escobar Admitting Provider: Claudette Patel Attending physician on admission: Claudette Patel Condition: Stable Hospitalist MIPS Heart Failure (Exclusion) Patient has history of Heart Transplant or Left Ventricular Assistive Device?: No IF YES, STOP HERE Heart Failure (Qualifier) Patient has current or prior documentation of LVEF less than or equal to 40%, or mod/servere depressed LVSF?: No IF NO, STOP HERE
== END 2023-12-07 16:30 | disposition home or self-care (01) ==
LOC: ANHED 22:52 → ANH3MED 12-07 02:08
PROVIDERS: Urology; Admitting Provider General Practice; Emergency Provider Student in an Organized Health Care Education/Training Program; PCP Family Medicine; Visit Provider Internal Medicine
PROC: (CPT 52352; principal; 2023-12-07 11:00)
DX: N13.2 Hydronephrosis with renal and ureteral calculous obstruction (principal); J96.01 Acute respiratory failure with hypoxia; I10 Essential (primary) hypertension; G47.33 Obstructive sleep apnea (adult) (pediatric); E78.5 Hyperlipidemia, unspecified; I69.312 Visuospatial deficit and spatial neglect following cerebral infarction; H53.462 Homonymous bilateral field defects, left side; Z79.82 Long term (current) use of aspirin; Z20.822 Contact with and (suspected) exposure to COVID-19; E66.01 Morbid (severe) obesity due to excess calories; Z68.41 Body mass index [BMI] 40.0-44.9, adult
CPT/HCPCS: 52332; 36415; 71045; 74176; 74420; 80048; 80053; 81001; 83690; 85025; 85027; 85610; 87086; 87637; 96361; 96374; 96375; 99285; A9270; C1758; C2617; G0378; J0690; J1100; J1171; J1885; J2003; J2250; J2371; J2405; J2704; J3010; J7120; Q9966

== ENCOUNTER 2023-12-11 07:13 | Outpatient (CLI) | payer OTHER, SELFPAY ==
--- NOTE | ~2023-12-11 | XR_ITS ---
EXAMINATION: XR abdomen/kub 1V DATE: 12/11/2023 07:29 INDICATION: Left ureteral stone. TECHNIQUE: A supine view of the abdomen on 2 radiographs was obtained. COMPARISON: CT abdomen and pelvis 12/06/2023 FINDINGS: There are no dilated loops of bowel. There are surgical clips from inguinal hernia repairs. There is a left internal ureteral stent in expected position. There are approximately 3 stones in le ft kidney lower pole measuring up to 8 mm. IMPRESSION: 1. Left kidney stones. 2. Left internal ureteral stent in expected position. Reviewed, dictated and finalized at location []
== END 2023-12-11 07:14 | disposition home or self-care (01) ==
PROVIDERS: PCP Family Medicine; Visit Provider Urology
DX: N20.1 Calculus of ureter (principal)
CPT/HCPCS: 74018

== ENCOUNTER 2023-12-25 01:44 | Day surgery (SDC) | payer OTHER, SELFPAY ==
[2023-12-18 11:04] VITALS: BMI 42.3
--- NOTE | 2023-12-18 11:04 | PC.NURSE ---
Report to the Outpatient Waiting Room, entrance under the green pavilion located off [facility], at time _0800_ on date _[id number]_. Planned Procedure Time: _1000_.? Time changes happen often and if your time is changed the preop area will call you the afternoon before. - You and your visitor will be asked to self-screen and do not enter if you have any COVID symptoms. Please call surgeon if you need to reschedule. - A mask is optional within the hospital at this time. Patients may have clear liquids (water, carbonated beverages, clear teas, apple juice) until 3 hours prior to surgery with a maximum of 20 ounces. - No food from midnight until time of surgery and no smoking Take only the following medications with a SIP of water on the morning of surgery: ___Amlodipine DO NOT STOP ANY OF YOUR OTHER PRESCRIPTION MEDICATIONS PRIOR TO SURGERY EXCEPT THE FOLLOWING Medications to discontinue per physician ___Patient stopped Aspirin today per instructions from Dr Kinney.____ Date to take last tcfd__[id number]____ Please no make-up, nail tamazight, hairspray, perfume, deodorant, or body powder the day of surgery.? No jewelry (including any body piercings) or valuables the day of surgery, leave them at home.? Please take a shower or bath the night before, or the morning of, surgery with an antibacterial soap.? Wear comfortable, loose fitting clothing.? - Jewelry must be removed prior to entering the operating room.? Rings and piercings that are not removed may be cut off. - The hospital will not accept responsibility for valuables.? - Please leave all valuables, including medications, at home the day of surgery. If you are going home after surgery, a licensed tractor driver teamster must drive you home.? - NO public transportation without another adult if you receive anesthesia. - We recommend that an adult stay with you for 24 hours following discharge. - We also recommend that you do not drive, make important decision, drink alcoholic beverages, or take any drugs that were not prescribed by your health care provider for at least 24 hours after your discharge time. Follow any additional instructions given to you from your surgeon. Telephone instructions given to __David__and asked if any additional questions and then verbalized understanding. Patient advised to call surgeon office or pre surgery nurse liaison [phone] if any additional questions.
[2023-12-25] VITALS (9 sets, daily range): BP systolic 121–150; BP diastolic 72–95; PULSE 65–82; RESP 12–18; TEMP 36.3–36.4; O2SAT 93–99; BMI 42.6
--- NOTE | ~2023-12-25 | XR_ITS ---
EXAMINATION: XR retrograde pyelo w/stent LT DATE: 12/25/2023 11:08 INDICATION: Left ureteral stone. TECHNIQUE: 3 intraoperative fluoroscopic views of the abdomen and pelvis were obtained. I was not pre sent. Fluoroscopy exposure time was 35 seconds. COMPARISON: CT abdomen and pelvis 12/06/2023 FINDINGS: The left-sided retrograde pyelogram is unremarkable. The final images demonstrate a left in ternal ureteral stent in expected position. IMPRESSION: 1. Left internal ureteral stent in expected position. Reviewed, dictated and finalized at location A. NE ENGINEER
--- NOTE | 2023-12-25 05:55 | WPDHPUPDATE1 ---
History and Physical Update Update Date/Time: 12/25/23 05:55 History and Physical has been reviewed, including an updated exam of the patient. There are NO changes in the patient's condition. Risks, benefits, and alternatives have been discussed and questions answered. Patient agrees to proceed with procedure.
[2023-12-25] MEDS: LACTATED RINGERS 1,000 ML 30 ML IV CONT ×2 (08:30→11:05)
--- NOTE | 2023-12-25 09:50 | WPDANESEPPF ---
Anes - Initial Pre Proc Eval Procedure: Operation Date: 12/25/23 10:00 Proposed Procedures p Cystoscopy, Left Ureteroscopy, Possible Left Retrograde Pyelogram, Possible Left Stone Extraction, Possible Left Stent Exchange, Possible Holmium Laser - Doug Kinney MD Date/Time: 12/25/23 09:50 Surgeon: Doug Kinney MD Pre Op Diagnosis: left ureteral stone Patient Data Age: 53 Gender: M Height: 1.77 m Weight: 132.8 kg Last Vital Signs Temp 36.3 C L 12/25/23 08:00 Pulse 77 12/25/23 08:00 Resp 16 12/25/23 08:00 BP 138/95 H 12/25/23 08:00 Pulse Ox 95 12/25/23 08:00 O2 Del Method Room Air 12/25/23 08:00 Allergies Allergy/AdvReac Type Severity Reaction Status Date / Time No Known Allergies Allergy Verified 12/25/23 08:14 Home Medications Medication Instructions Recorded Confirmed Type amlodipine 10 mg tablet 10 mg PO DAILY #90 tabs 02/26/23 12/25/23 Rx aspirin 81 mg chewable tablet 81 mg PO DAILY@0800 #90 tabs 10/09/23 12/24/23 Rx (Children's Aspirin) atorvastatin 40 mg tablet 40 mg PO QHS #90 tabs 10/27/23 12/25/23 Rx lisinopril 20 mg tablet 20 mg PO DAILY #90 tabs 11/03/23 12/25/23 Rx Patient hx anesthesia problems: none Family hx anesthesia problems: none Results Review: All pre-operative results and documents have been reviewed as part of the pre-operative evaluation. [facility] Past Medical History Medical History Cerebrovascular accident (~01/2023) Colon cancer screening Family history of colon cancer Hyperlipidemia Hypertension Implantable loop recorder present Left homonymous hemianopsia (~01/2023) Surgical History Surgical History History of bilateral inguinal hernia repair (~09/2008) Family History Family History Mother Carcinoma of colon Father Carcinoma of colon Social History Social History Smoking status: Never smoker Alcohol intake: never Substance use: current Substance use type: does not use Do You Feel Safe in your Home?: Yes Lack of Transportation: No Lack of Food: Never True Current Housing: I Have Housing Concerned About Future Housing: No Difficulty Paying Gas/Electric Bills: No Difficulty Paying for Meds: No Currently Unemployed: No Education: Bachelor's Degree Difficulty w/ Childcare or Family Care: No Living arrangements: alone Spiritual care concerns: No Anes - Eval Final PreProcedure Day of Procedure 12/25/23 09:50 Patient weight: morbidly obese Heart: regular rate and rhythm Lungs: clear to auscultation Airway: Mallampati scale class II Neurological: alert and oriented Last oral intake: >/= 8 hours ASA classification: III Emergent: no Anesthetic plan: proceed Anesthesia type and monitoring: general GIVS and standard monitoring Results Review: All pre-operative results and documents have been reviewed as part of the pre-operative evaluation. Informed Consent: The patient's anesthetic plan and its attendant risks and benefits were discussed with the patient/family/POA. Questions were solicited and answers provided to the satisfaction of the patient/family/POA.
[2023-12-25] MEDS: ceFAZolin 3 GM/D5W 100 ML 100 ML IVPB (09:59)
[2023-12-25] MEDS: LIDOCAINE HCL 2% GEL UROJET 10 ML PKG MUCOUS MEM (10:18)
--- NOTE | 2023-12-25 11:04 | W.PM.PROC2 ---
Procedure Note - Detailed Date of Procedure 12/25/23 Pre-op Diagnosis Left ureteral and renal stones Post-op Diagnosis Same Procedure Performed Cystoscopy, left ureteroscopy with laser lithotripsy stone extraction retrograde pyelography and stent placement Surgeon Doug Kinney MD Anesthesia General Description of Procedure patient is brought to the operative suite was prepped draped in routine sterile fashion while in dorsal lithotomy position after the uneventful induction of a general LMA anesthetic. Cystoscopy was undertaken with a 19 F rigid cystoscope. The tip of the indwelling stent is grasped and brought to the external urethral meatus. A 0.035 in glidewire was advanced into his left renal pelvis. Ureter was dilated with an 8 F 10 F dilator. A safety wire was placed followed by a 11 F sheath/13 F access sheath. Ureteroscopy undertaken 7.5 F flexible digital ureteral scope. The large 7-8 mm stone is still in his left proximal ureter. There were 3 smaller stones in the left kidney which I extracted with a 1.9 F disposable stone basket. The larger stone was then fractured with a 2 micron Titi laser fiber. Larger pieces were extracted with the basket and the remaining smaller pieces were dusted the size is less than 2 mm. Retrograde pyelogram was obtained to ensure appropriate replacement of a 4.8 F variable length stent Drains Yes Packing No Pathology Yes Complications No immediate complications
[2023-12-25] MEDS: fentaNYL CITRATE INJ (*CRX) 100 MCG/2 ML VIAL 25 MCG IV PUSH ×4 (11:23→11:32)
== END 2023-12-25 13:20 | disposition home or self-care (01) ==
PROVIDERS: PCP Family Medicine; Visit Provider Urology
PROC: (CPT 52352; principal; 2023-12-25 10:00)
DX: N20.2 Calculus of kidney with calculus of ureter (principal); I10 Essential (primary) hypertension; E78.5 Hyperlipidemia, unspecified; H53.462 Homonymous bilateral field defects, left side; Z86.73 Personal history of transient ischemic attack (TIA), and cerebral infarction without residual deficits; Z79.82 Long term (current) use of aspirin; E66.01 Morbid (severe) obesity due to excess calories; Z68.41 Body mass index [BMI] 40.0-44.9, adult
CPT/HCPCS: 52356; 74420; 82365; 88300; C1769; C1894; C2617; J0690; J1100; J1885; J2003; J2250; J2405; J2704; J3010; J7120; Q9966

== ENCOUNTER 2024-09-13 15:14 | Emergency (ER) | payer OTHER, SELFPAY ==
--- NOTE | ~2024-09-13 | XR_ITS ---
Exam: Abdomen 1V HISTORY: stone COMPARISON: Reference is made to a CT examination of the abdomen and pelvis performed 45 minutes mariah ier TECHNIQUE: Supine images of the abdomen FINDINGS: Delayed excretion of cortical contrast is identified within the left kidney. Redemonstration of a 5 mm calculus just to the left of the inferior endplate of L3, consistent with p oseas's known proximal ureteral calculus. Increased density projecting over the lower pole of the left kidney consistent with multiple nonobstr ucting renal calculi The right lower pole renal calculus is not definitively visualized, secondary to overlying bowel gas. The bladder is opacified with previous contrast. IMPRESSION: Redemonstration of the proximal ureteral calculus as well as the left lower pole calculi, as detailed above. Reviewed, dictated and finalized at location A. IMPRESSION: Redemonstration of the proximal ureteral calculus as well as the left lower brennon e calculi, as detailed above.
--- NOTE | ~2024-09-13 | CT_ITS ---
CLINICAL INDICATION: Left upper quadrant pain COMPARISON: 12/06/2023 which demonstrated a left-sided UPJ stone and left-sided hydronephrosis. TECHNIQUE: Multiple contiguous axial images of the abdomen and pelvis were performed following the ad ministration of with 100 mL Omnipaque-350 intravenous contrast The dose-length product (DLP) was 1915.91 mGy-cm. Automated exposure control and iterative reconstruction technique were employed. FINDINGS/OBSERVATIONS: Visualized lower thorax: Elevation of the right hemidiaphragm with adjacent compressive atelectasis. The heart is of normal size, without pericardial effusion. Small hiatal hernia is present. Liver: Well-circumscribed focus of fluid attenuation within segment 3 of the liver, unchanged from pr ior and most likely a hepatic cyst. The remainder of the liver demonstrates otherwise homogeneous enhancement and is not enlarged. Gallbladder and biliary system: The gallbladder is only minimally distended, and otherwise unremarkable. Pancreas: The pancreas enhances homogeneously without ductal dilatation. Spleen: The spleen enhances homogeneously and is not enlarged. Kidneys: Redemonstration of significant left-sided hydronephrosis with surrounding inflammatory bond e. Global enlargement of the left kidney. A 5.5 mm calculus is identified within the proximal left ur eter. Multiple stones are redemonstrated within the lower pole of the left kidney the largest measuri ng 8 mm. The remainder of the bilateral kidneys otherwise enhance symmetrically. A nonobstructing 7.5 mm calculus is identified within the lower pole of the right kidney. No right-sided hydronephrosis or additional renal calculi. Adrenal glands: Unremarkable. Gastrointestinal tract: Colonic diverticulosis without surrounding inflammatory change. Appendix: The air-filled appendix is of normal caliber (axial series, images 89 through 112) Vasculature: Unremarkable. Lymph nodes: No pathologically enlarged or morphologically suspicious lymph nodes within the retroperitoneum or at the root of the mesentery. Pelvic structures: The bladder is distended, and otherwise unremarkable. The prostate gland is not enlarged. Body wall and musculoskeletal: Complex fat-containing supraumbilical hernia. 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 IMPRESSION: Global enlargement of the left kidney with moderate hydroureteronephrosis secondary to a 5.5 mm calcu dimas within the proximal left ureter. Reviewed, dictated and finalized at location A. IMPRESSION: Global enlargement of the left kidney with moderate hydroureteronephrosis aditi mason to a 5.5 mm calculus within the proximal left ureter.
--- OUTSIDE RECORDS SUMMARY | 2024-09-13 15:21 | XMS_ITS | Clinical Summary ---
Author Organization [facility] Address [address] [place] [phone] Phone Care Team Providers Care Pump Press Operator Name Role Phone Unavailable Primary Care Provider Unavailabl e Social History Tobacco Use Types Packs/Day Years Used Date Smoking Tobacco: Never Assessed Sex and Gender Information Value Date Recorded Sex Assigned at Not on file Legal Sex Male 2:40 PM CDT Gender Identity Not on file Sexual Orientation Not on file Plan of Treatment Health Maintenance Due Date Last Done Comments DTAP/TDAP/TD VACCINES (1 - Tdap) 01/02/1988 HEPATITIS B VACCINES (1 of 3 - 19+ 3-dose series) 12/12 COLORECTAL SCREENING 2014 Colorectal Cancer Screening 2014 FIT-DNA Q 3 years 2014 FIT/FOBT Q 1 year 2014 Flex Sig/CT Colonography Q 5 years 2014 ZOSTER VACCINE (1 of 2) 2019 INFLUENZA VACCINE (#1) 2024 Insurance [facility] [id number]
[2024-09-13 15:41] VITALS: BP 159/95; PULSE 102; RESP 18; TEMP 36.6; O2SAT 97
--- NOTE | 2024-09-13 15:47 | ECG_ITS ---
Test Date: 2024-09-13 18:51:10 Measurements Intervals [place] Rate: 82 P: 2 NE: 145 QRS: 1 QRSD: 85 T: -5 QT: 339 QTc: 398 Interpretive Statements SINUS RHYTHM CONSIDER INFERIOR INFARCT, AGE INDETERMINATE BASELINE ARTIFACT- I, II, III, AVR, AVL, AVF ABNORMAL ECG No previous ECG available for comparison Electronically Signed On 09-13-2024 19:45:12 CDT by Reg Zapata D.O.
--- NOTE | 2024-09-13 15:47 | ED.ABDPAIN ---
HPI - Abdominal Pain General Chief Complaint: Abdominal Pain <Vahid Mars APRN - Last Filed: 09/13/24 15:49> Stated Complaint: LUQ abd. pain, kidney stone concern <Vahid Mars APRN - Last Filed: 09/13/24 15:49> Time Seen by Provider: 09/13/24 20:32 <Vahid Mars APRN - Last Filed: 09/13/24 15:49> 54-year-old male presents to the ER complaining of left upper quadrant. Patient has a history of CVA and hyperlipidemia. Patient denies any chest pain shortness of breath, nausea, vomiting, diarrhea, urinary symptoms, fevers, body aches, chills or blood in his urine. Patient has a history of kidney stones.Focused HPI: GENERAL: Well-appearing, well-nourished, and in no acute distress. Patient is obese. HEAD: Normocephalic, atraumatic. CHEST: Clear to auscultation. ?No respiratory distress. HEART: Regular rate and rhythm.? GI: Abdomen large, nondistended, nontender to palpate. Bowel Sounds are active. No palpable masses. No rigidity or guarding. No rebound tenderness. NEURO: ?Alert and oriented x3. Patient screened in triage and initial orders placed.? ?Additional care and disposition to be based upon?diagnostic testing and treatment. <Vahid Mars APRN - Last Filed: 09/13/24 15:49> Related Data Allergies/Adverse Reactions: Allergies Allergy/AdvReac Type Severity Reaction Status Date / Time No Known Allergies Allergy Verified 09/13/24 21:19 <Vahid Mars APRN - Last Filed: 09/13/24 15:49> [facility] Past Medical History Medical History: Medical History (Updated 09/13/24 @ 21:50 by Karlo lLamas MD) Prediabetes History of renal calculi (~11/2023) History of embolic stroke without residual deficits (~01/2023) Obstructive sleep apnea Implantable loop recorder present (~03/2023) Family history of colon cancer Hyperlipidemia Left homonymous hemianopsia (~01/2023) Cerebrovascular accident (~01/2023) Hypertension <Vahid Mars APRN - Last Filed: 09/13/24 15:49> Surgical History Surgical History: Surgical History History of cystoscopy (~11/2023) Left retrograde pyelogram, Left ureteral stent placement Status post laser lithotripsy of ureteral calculus (~12/2023) Cystoscopy, left ureteroscopy with laser lithotripsy stone extraction retrograde pyelography and stent placement History of bilateral inguinal hernia repair (~09/2008) <Vahid Mars APRN - Last Filed: 09/13/24 15:49> Family History Family History: Family History Mother Carcinoma of colon Father Carcinoma of colon <Vahid Mars APRN - Last Filed: 09/13/24 15:49> Social History Social History: Social History Smoking status: Never smoker Alcohol intake: never Substance use: current Substance use type: does not use Do You Feel Safe in your Home?: Yes Lack of Transportation: No Lack of Food: Never True Current Housing: I Have Housing Concerned About Future Housing: No Difficulty Paying Gas/Electric Bills: No Difficulty Paying for Meds: No Currently Unemployed: No Education: Bachelor's Degree Difficulty w/ Childcare or Family Care: No Living arrangements: alone Spiritual care concerns: No <Vahid Mars APRN - Last Filed: 09/13/24 15:49> Course Course Emergency Course: Left UPJ stone 5.5 mm. Borderline for passage. Discussed with urology. KUB here. Discharged home with pain medications/antiemetics, Flomax, and urine strainer. Discussed treatment plan with patient who is agreeable. Follow up outpatient. <Karlo Llamas MD - Last Filed: 09/13/24 21:57> Vital Signs Vital signs: Vital Signs Temperature 97.8 F 09/13/24 15:41 Pulse Rate 102 H 09/13/24 15:41 Respiratory Rate 18 09/13/24 15:41 Blood Pressure 159/95 H 09/13/24 15:41 Pulse Oximetry 97 09/13/24 15:41 Oxygen Delivery Room Air 09/13/24 15:41 Temperature 97.8 F 09/13/24 15:41 Pulse Rate 81 09/13/24 21:14 Respiratory Rate 17 09/13/24 21:14 Blood Pressure 143/67 H 09/13/24 21:14 Pulse Oximetry 96 09/13/24 21:14 Oxygen Delivery Room Air 09/13/24 15:41 <Vahid Mars APRN - Last Filed: 09/13/24 15:49> Vital Signs Temperature 97.8 F 09/13/24 15:41 Pulse Rate 102 H 09/13/24 15:41 Respiratory Rate 18 09/13/24 15:41 Blood Pressure 159/95 H 09/13/24 15:41 Pulse Oximetry 97 09/13/24 15:41 Oxygen Delivery Room Air 09/13/24 15:41 Temperature 97.8 F 09/13/24 15:41 Pulse Rate 81 09/13/24 21:14 Respiratory Rate 17 09/13/24 21:14 Blood Pressure 143/67 H 09/13/24 21:14 Pulse Oximetry 96 09/13/24 21:14 Oxygen Delivery Room Air 09/13/24 15:41 <Karlo Llamas MD - Last Filed: 09/13/24 21:57> MDM - Abdominal Pain Lab Data Result diagrams: 09/13/24 17:12 09/13/24 17:12 <Vahid Mars APRN - Last Filed: 09/13/24 15:49> Labs: Lab Results 09/13/24 09/13/24 Range/Units 17:12 19:37 WBC 8.2 (4.5-10.0) K/mm3 RBC 4.54 L (4.6-6.20) M/mm3 Hgb 14.1 (14.0-18.0) g/dL Hct 41.3 L (42.0-52.0) % MCV 91.0 (80-100) fl MCH 31.1 (26-34) pg MCHC 34.1 (32-36) g/dl RDW 12.1 (11.5-14.5) % Plt Count 191 (150-375) k/mm3 MPV 8.4 (7.4-10.4) fl Immature Gran % (Auto) 0.2 (0-0.5) % Neut % (Auto) 74.6 H (45.5-73.1) % Lymph % (Auto) 15.2 L (18.3-44.2) % Mar[place]osa % (Auto) 8.7 H (2.6-8.5) % Eos % (Auto) 0.9 (0-4.4) % Baso % (Auto) 0.4 (0.2-1.2) % Lymph # (Auto) 1.24 (0.9-3.2) K/mm3 [place] # (Auto) 0.7 H (0.1-0.6) K/mm3 Eos # (Auto) 0.1 (0-0.3) K/mm3 Baso # (Auto) 0.0 (0.0-0.1) K/mm3 Abs Immat Gran (auto) 0.02 (0.00-0.031) K/mm3 Absolute Neuts (auto) 6.1 (1.3-6.7) K/mm3 Absolute Nucleated RBC 0.000 (0.0-0.012) K/mm3 Nucleated RBC % 0.0 (0.0-0.2) % Sodium 136 L (137-145) mmol/L Potassium 4.0 (3.4-5.0) mmol/L Chloride 102 (98-107) mmol/L Carbon Dioxide 25 (22-30) mmol/L Anion Gap 9 (4-12) mmol/L BUN 17 (9-20) mg/dL Creatinine 1.05 (0.7-1.3) mg/dL Estim Creat Clear Calc 97 ml/min Estimated GFR > 60 (59 - ) Glucose 111 H (65-110) mg/dL Calcium 9.5 (8.4-10.2) mg/dL Total Bilirubin 0.9 (0.2-1.3) mg/dL AST 35 (17-59) U/L ALT 35 (6-50) U/L Alkaline Phosphatase 80 (38-126) U/L Troponin I < 0.012 (0.000-0.034) ng/mL Total Protein 7.8 (6.3-8.2) g/dL Albumin 4.6 (3.5-5.1) g/dL Lipase 67 (23-300) U/L Urine Color Yellow (Yellow) Urine Appearance Clear (Clear) Urine pH 6.0 (5.0-9.0) Ur Specific Sl[place] 1.017 (1.001-1.035) Urine Protein Negative (Negative) mg/dL Urine Glucose (UA) Negative (Negative) mg/dL Urine Ketones Negative (Negative) mg/dL Ur Blood (Man) Negative (Negative) Urine Nitrate Negative (Negative) Urine Bilirubin Negative (Negative) Urine Urobilinogen 0.2 (<2.0) mg/dL Leukocyte Esterase Rfl Negative (Negative) ROLA/UL <Vahid Mars, VENETIAN BLIND MECHANIC - Last Filed: 09/13/24 15:49> Lab Results 09/13/24 09/13/24 Range/Units 17:12 19:37 WBC 8.2 (4.5-10.0) K/mm3 RBC 4.54 L (4.6-6.20) M/mm3 Hgb 14.1 (14.0-18.0) g/dL Hct 41.3 L (42.0-52.0) % MCV 91.0 (80-100) fl MCH 31.1 (26-34) pg MCHC 34.1 (32-36) g/dl RDW 12.1 (11.5-14.5) % Plt Count 191 (150-375) k/mm3 MPV 8.4 (7.4-10.4) fl Immature Gran % (Auto) 0.2 (0-0.5) % Neut % (Auto) 74.6 H (45.5-73.1) % Lymph % (Auto) 15.2 L (18.3-44.2) % Mariposa % (Auto) 8.7 H (2.6-8.5) % Eos % (Auto) 0.9 (0-4.4) % Baso % (Auto) 0.4 (0.2-1.2) % Lymph # (Auto) 1.24 (0.9-3.2) K/mm3 [place]iposa # (Auto) 0.7 H (0.1-0.6) K/mm3 Eos # (Auto) 0.1 (0-0.3) K/mm3 Baso # (Auto) 0.0 (0.0-0.1) K/mm3 Abs Immat Gran (auto) 0.02 (0.00-0.031) K/mm3 Absolute Neuts (auto) 6.1 (1.3-6.7) K/mm3 Absolute Nucleated RBC 0.000 (0.0-0.012) K/mm3 Nucleated RBC % 0.0 (0.0-0.2) % Sodium 136 L (137-145) mmol/L Potassium 4.0 (3.4-5.0) mmol/L Chloride 102 (98-107) mmol/L Carbon Dioxide 25 (22-30) mmol/L Anion Gap 9 (4-12) mmol/L BUN 17 (9-20) mg/dL Creatinine 1.05 (0.7-1.3) mg/dL Estim Creat Clear Calc 97 ml/min Estimated GFR > 60 (59 - ) Glucose 111 H (65-110) mg/dL Calcium 9.5 (8.4-10.2) mg/dL Total Bilirubin 0.9 (0.2-1.3) mg/dL AST 35 (17-59) U/L ALT 35 (6-50) U/L Alkaline Phosphatase 80 (38-126) U/L Troponin I < 0.012 (0.000-0.034) ng/mL Total Protein 7.8 (6.3-8.2) g/dL Albumin 4.6 (3.5-5.1) g/dL Lipase 67 (23-300) U/L Urine Color Yellow (Yellow) Urine Appearance Clear (Clear) Urine pH 6.0 (5.0-9.0) Ur Specific [place] 1.017 (1.001-1.035) Urine Protein Negative (Negative) mg/dL Urine Glucose (UA) Negative (Negative) mg/dL Urine Ketones Negative (Negative) mg/dL Ur Blood (Man) Negative (Negative) Urine Nitrate Negative (Negative) Urine Bilirubin Negative (Negative) Urine Urobilinogen 0.2 (<2.0) mg/dL Leukocyte Esterase Rfl Negative (Negative) ROLA/UL <Karlo Llamas MD - Last Filed: 09/13/24 21:57> Imaging Data Radiologist's impression: ITS Impressions Abdomen/Pelvis CT 09/13/24 21:18 IMPRESSION: Global enlargement of the left kidney with moderate hydroureteronephrosis secondary to a 5.5 mm calculus within the proximal left ureter. <Vahid Mars APRN - Last Filed: 09/13/24 15:49> ITS Impressions Abdomen/Pelvis CT 09/13/24 21:18 IMPRESSION: Global enlargement of the left kidney with moderate hydroureteronephrosis secondary to a 5.5 mm calculus within the proximal left ureter. <Karlo Llamas MD - Last Filed: 09/13/24 21:57> Discharge Plan Discharge Clinical Impression: Ureterolithiasis <Vahid Mars APRN - Last Filed: 09/13/24 15:49> Patient Disposition: Home <Vahid Mars APRN - Last Filed: 09/13/24 15:49> Condition: Stable <Vahid Mars APRN - Last Filed: 09/13/24 15:49> Instructions: Kidney Stones (ED) <Vahid Mars APRN - Last Filed: 09/13/24 15:49> Additional Instructions: Return to the emergency department if you develop severe abdominal pain, severe nausea and vomiting to the point where you are unable to keep down fluids, if you develop chest pain or difficulty breathing, blood in your stool, dizziness or fainting, or if you develop any other new or concerning symptoms as these could be signs of more serious medical illness. Try to stay well hydrated. Take Tylenol with hydrocodone for pain, Zofran for nausea, Flomax to help with passage of the stone, and drink plenty of fluids. Strain your urine to catch the stone. Follow up with Urology. <Vahid Mars APRN - Last Filed: 09/13/24 15:49> Patient Language: Mongolian <Vahid Mars APRN - Last Filed: 09/13/24 15:49> Prescriptions: New hydrocodone-acetaminophen 5-325 mg tablet 1 tablet PO Q6H PRN (Reason: pain) Qty: 20 0RF tamsulosin 0.4 mg capsule 0.4 mg PO DAILY Qty: 7 0RF ondansetron 4 mg tablet,disintegrating 4 mg PO Q6H PRN (Reason: nausea and vomiting) Qty: 10 0RF No Action aspirin 81 mg tablet,chewable See Rx Instructions .ROUTE .COMPLEX Qty: 90 1RF Dose Instruction: CHEW AND SWALLOW 1 TABLET BY MOUTH DAILY AT 8 AM Rx Instructions: CHEW AND SWALLOW 1 TABLET BY MOUTH DAILY AT 8 AM atorvastatin 40 mg tablet 40 mg PO QHS Qty: 90 1RF amlodipine 10 mg tablet 10 mg PO DAILY Qty: 90 1RF lisinopril 20 mg tablet See Rx Instructions .ROUTE .COMPLEX Qty: 90 1RF Dose Instruction: TAKE 1 TABLET BY MOUTH DAILY Rx Instructions: TAKE 1 TABLET BY MOUTH DAILY <Vahid Mars APRN - Last Filed: 09/13/24 15:49> Follow-up/Referrals: Wayne Escobar MD [Primary Care Provider] - 1 Week John Faulkner MD [Physician] - 1 Week <Vahid Mars APRN - Last Filed: 09/13/24 15:49>
[2024-09-13 17:21] LABS: Hematocrit 41.3 % (42.0-52.0); Hemoglobin 14.1 g/dL (14.0-18.0); Immature Granulocyte Percent A 0.2 % (0-0.5); Lymphocytes Absolute Auto 1.24 K/mm3 (0.9-3.2); Mean Corpuscular HGB Conc 34.1 g/dl (32-36); Mean Corpuscular Hemoglobin 31.1 pg (26-34); Mean Corpuscular Volume 91.0 fl (80-100); Nucleated Red Blood Cells Absolute Auto 0.000 K/mm3 (0.0-0.012); Nucleated Red Blood Cells Perc 0.0 % (0.0-0.2); Platelet Count Result 191 k/mm3 (150-375); Red Blood Count 4.54 M/mm3 (4.6-6.20); White Blood Count 8.2 K/mm3 (4.5-10.0)
[2024-09-13 17:33] LABS: Alanine Aminotransferase 35 U/L (6-50); Albumin Level 4.6 g/dL (3.5-5.1); Alkaline Phosphatase 80 U/L (38-126); Anion Gap 9 mmol/L (4-12); Aspartate Amino Transferase 35 U/L (17-59); Bilirubin,Total 0.9 mg/dL (0.2-1.3); Blood Urea Nitrogen 17 mg/dL (9-20); Calcium 9.5 mg/dL (8.4-10.2); Carbon Dioxide 25 mmol/L (22-30); Chloride 102 mmol/L (98-107); Estimated CRCL calculation 97 ml/min; Estimated Glomerular Filt Rate > 60; Glucose 111 mg/dL (65-110); Lipase 67 U/L (23-300); Potassium 4.0 mmol/L (3.4-5.0); Sodium 136 mmol/L (137-145); Total Protein 7.8 g/dL (6.3-8.2)
[2024-09-13 17:45] LABS: Troponin I < 0.012 ng/mL (0.000-0.034)
[2024-09-13 19:46] LABS: Add Urine Microscopic? NO; Appearance Urine Clear (Clear); Glucose Urine UA Negative (Negative); Leukocyte Esterase Ur Negative LEU/UL (Negative); Nitrate Urine Negative (Negative); Specific Grav Ur 1.017 (1.001-1.035)
[2024-09-13 20:36] VITALS: PULSE 87; RESP 15; O2SAT 96
--- OUTSIDE RECORDS SUMMARY | 2024-09-13 20:41 | XMS_ITS | Clinical Summary ---
Author Organization [facility] Address [address] [place] [address] Care Team Providers Care Oral And Maxillofacial Pathologist Name Role Phone Lindsay Escobar MD Primary Care Provider Greyson Betancur MD Unavailable Medications lisinopril (PRINIVIL) 10 MG tablet Take 1 tablet (10 mg total) by mouth daily. Active clopidogrel (PLAVIX) 75 MG tablet Take 1 tablet (75 mg total) by mouth daily. Active aspirin 81 MG chewable tablet Chew 1 tablet (81 mg total) by mouth daily. Active atorvastatin (LIPITOR) 40 MG tablet Take 1 tablet (40 mg total) by mouth daily. 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 Status post placement of implantable loop record er 04/14/2023 Overview (04/14/2023): JOHANNA LNNic implanted 04/11/23 for cryptogenic stroke. Encounters Date Type Department Care Team Description 08/16/2024 4:20 PM CDT Allied Health/Nurse Visit [facility], [place] [address] [place] [address] Bárbara Glover MD Remote Device Check 07/12/2024 4:15 PM CDT Allied Health/Nurse Visit [facility] [address] [place] [address] Bárbara Glover MD Remote Device Check from Last 3 Months Social History Tobacco Use Types Packs/Day Years Used Date Smoking Tobacco: Never Assessed Sex and Gender Information Value Date Recorded Sex Assigned at Not on file Legal Sex 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 Gender Identity Not on file Sexual Orientation Not on file Last Filed Vital Signs Vital Sign Reading Time Taken Comments Blood Pressure 133/79 04/11/2023 7:44 AM PHOTOGRAPHIC EDITOR Pulse 80 04/11/2023 7:44 AM PHOTOGRAPHIC EDITOR Temperature 36.6 C (97.9 F) 04/11/2023 7:44 AM PHOTOGRAPHIC EDITOR Respiratory Rate 20 04/11/2023 7:44 AM PHOTOGRAPHIC EDITOR Oxygen Saturation 93% 04/11/2023 7:44 AM PHOTOGRAPHIC EDITOR Inhaled Oxygen Concentration - - Weight 129.2 kg (284 lb 13.4 oz) 04/11/2023 7:44 AM PHOTOGRAPHIC EDITOR Height 177.8 cm (5' 10) 04/11/2023 7:44 AM PHOTOGRAPHIC EDITOR Body Mass Index 40.87 04/11/2023 7:44 AM PHOTOGRAPHIC EDITOR Plan of Treatment Upcoming Encounters Date Type Department Care Team (Late st Contact Info) Description 09/20/2024 4:20 PM CDT Allied Health/Nurse Visit [facility], [facility] [address] [place] [address] Greyson Betancur MD [facility] [address] [place], [place] [id number] Health Maintenance Due Date Last Done Comments Colorectal Cancer Screening Colonoscopy (10 Years) 1969 Annual Physical 01/02/1972 Hepatitis C 1987 Hepatitis B Vaccines (1 of 3 - 19+ 3-dose series) 01/02/1988 Pneumococcal Vaccine: 50+ Ye ars (1 of 1 - PCV) 2019 Zoster Vaccines (2 of 2) 05/28/2023 04/02/2023 COVID-19 Vaccine (1 - 2023-2 5 season) 2023 DTaP, Tdap and Td Vaccines ( 2 - Td or Tdap) 04/02/2033 04/02/2023 Meningococcal B Vaccine Aged Out No l onger eligible based on patient's age to complete this topic Meningococcal Vaccine Aged Out No briseida tomy eligible based on patient's age to complete this topic RSV Immunizations Under 20 Months Aged Out No longer eligible based on patient's age to complete this topic Medical Devices Implanted Type Area Lining Stamper Device Identifier Shelf Expiration Date Model / Serial / Lot Linq Ii-04/11/2023 Implanted:Qty : 1 on 04/11/2023 by Bárbara Glover MD Implantable Loop Recorder [employer] CARDIAC RHYTHM AND HEART FAILURE - DIV M 05/17/2024 [id number] / [id number] / [place] [address] [place] [address] [facility] Care Teams Oral And Maxillofacial Pathologist Relationship Specialty Start Date End Date Lindsay Escobar MD [address] [place] [address] PCP - General FAMILY PRACTICE 03/13/23 Greyson Betancur MD [address] [address] Consulting Physician CLINICAL CARDIAC ELECTROPHYSIOLOGY 07/14/24
--- OUTSIDE RECORDS SUMMARY | 2024-09-13 20:41 | XMS_ITS | Clinical Summary ---
Author Organization [facility] [employer] [facility] Address [address] [place] [phone] Phone Care Team Providers Care Charge Weigher Name Role Phone Unavailable Primary Care Provider [...] 2) 2019 INFLUENZA VACCINE (#1) 2024 Insurance [facility] [id number]
[2024-09-13 20:45] VITALS: PULSE 88; RESP 18; O2SAT 95
[2024-09-13] MEDS: KETOROLAC 15 MG/ML VIAL (*BKC) IV PUSH (20:57)
--- NOTE | 2024-09-13 21:04 | PC.NURSE ---
pt to ct via stretcher, nad noted.
[2024-09-13 21:14] VITALS: BP 143/67; PULSE 81; RESP 17; O2SAT 96
[2024-09-13] MEDS: ONDANSETRON INJ 4 MG/2 ML VIAL IV PUSH (22:02)
[2024-09-13] MEDS: TAMSULOSIN HCL 0.4 MG CAPSULE PO (22:04)
[2024-09-13] MEDS: HYDROcodone/acetaminophen (*CRX) 5-325 MG TABLET 1 TAB PO (22:05)
== END 2024-09-13 22:13 | disposition home or self-care (01) ==
PROVIDERS: Emergency Provider Emergency Medicine; PCP Family Medicine
DX: N20.1 Calculus of ureter (principal); Z87.442 Personal history of urinary calculi; G47.30 Sleep apnea, unspecified; E78.5 Hyperlipidemia, unspecified; I10 Essential (primary) hypertension; Z86.73 Personal history of transient ischemic attack (TIA), and cerebral infarction without residual deficits
CPT/HCPCS: 36415; 74018; 74177; 80053; 81003; 83690; 84484; 85025; 93005; 96374; 96375; 99284; A9270; J1885; J2405; Q9967

== ENCOUNTER 2024-11-10 08:38 | Outpatient (CLI) | payer OTHER, SELFPAY ==
--- NOTE | ~2024-11-10 | XR_ITS ---
Abdominal radiograph(s) INDICATION: Left ureteral stone COMPARISON: X-ray 09/13/2024 CT 09/13/2024 TECHNIQUE: 2 views AP abdomen FINDINGS: Bilateral renal stone. No ureteral stones identified. Scattered colonic stool. Small bowel loops not well seen. No evidence of organomegaly. No acute bony abnormality. IMPRESSION: 1. No ureteral stones identified. 2. Bilateral renal stone. Reviewed, dictated and finalized at location R.
== END 2024-11-10 08:39 | disposition home or self-care (01) ==
PROVIDERS: PCP Urology; Visit Provider Urology
DX: N20.1 Calculus of ureter (principal)
CPT/HCPCS: 74018